=== PATIENT | female | born 1980 | race Caucasian/White ===

== ENCOUNTER 2018-11-30 08:16 | Day surgery (SDC) | payer OTHER ==
[2018-11-30] VITALS (18 sets, daily range): BP systolic 94–124; BP diastolic 51–72; PULSE 60–88; RESP 11–21; Ht 149.9 cm; Wt 77.1 kg
[~2018-11-30] VITALS: Ht 149.9 cm; Wt 77.1 kg
[2018-11-30] MEDS ORDERED: SOD CHLORIDE 0.9% 1,000 ML IV SCH (11:30)
[2018-11-30] MEDS ORDERED: CEFAZOLIN 2 GM/50 ML (PMX) 50 ML IVPB SCH (11:30)
[2018-11-30] MEDS ORDERED: BUPIVACAINE 0.25% (MPF) 30 ML INJ ONE (12:06)
--- NOTE | 2018-11-30 12:15 | PREAC ---
Date/Time of Note Date/Time of Note DATE: 11/30/18 TIME: 12:14 Anesthesia Eval and Record Evaluation Time Pre-Procedure Interview DATE: 11/30/18 TIME: 12:14 Age 38 Sex female NPO: 8 hrs Preoperative diagnosis axillary mass Planned procedure excision of axillary mass Past Medical History Past Medical History: None Surgery & Anesthesia Issues No known issue Meds Anticoagulation: No Beta Chris within 24 hr: No Reason Beta Chris not given: Pt. not on B-Chris No Active Prescriptions or Reported Meds Current Medications Sodium Chloride 1,000 ml @ 75 mls/hr [id number] IV ; Start 11/30/18 at 11:30; Stop 11/30/18 at 22:00 Meds reviewed: Yes Allergies Coded Allergies: ciprofloxacin (Verified Allergy, Unknown, 11/30/18) Allergies Reviewed: Yes Labs/Studies Labs Reviewed: Reviewed by anesthesiologist test: Negative Pre-procedure Exam Last vitals Vital Signs Date Temp Pulse Resp B/P (MAP) Pulse Ox O2 O2 Flow FiO2 Time Delivery Rate 11/30/18 97.8 72 16 124/67 100 09:54 (86) Airway: Adequate mouth opening, Adequate thyromental dist Mallampati: Mallampati III Teeth: Normal Lung: Normal Heart: Normal ASA Physical Status ASA physical status: 1 Emergency: None Pre-operative Attestations Prior to commencing anesthesia and surgery, the patient was re-evaluated, there was verification of: *The patient's identity *The results of appropriate recent lab work and preoperative vital signs *The above evaluation not changing prior to induction *Anesthetic plan, risk benefits, alternative and complications discussed with patient/family; questions answered; patient/family understands, accepts and wishes to proceed. CHANA DASILVA DO Nov 30, 2018 12:15
[2018-11-30] MEDS ORDERED: ROPIVACAINE 0.5 % 30 ML VIAL ONE (12:29)
[2018-11-30] MEDS ORDERED: FENTAnyl 50 MCG/ML VIAL ONE ×2 (12:29→13:09)
[2018-11-30] MEDS ORDERED: MIDAZOLAM 1 MG/ML 2 ML INJ ONE (12:29)
[2018-11-30] MEDS ORDERED: PROPOFOL 20 ML ONE (12:29)
[2018-11-30] MEDS ORDERED: DEXAMETHASONE 4 MG/ML 5 ML INJ ONE (12:30)
[2018-11-30] MEDS ORDERED: HYDROmorphONE 1 MG/5 ML IV SYRINGE IV PRN ×3 (12:30)
[2018-11-30] MEDS ORDERED: SEVOFLURANE 15 MIN ONE (12:30)
[2018-11-30] MEDS ORDERED: LIDOCAINE 1% (MDV) 20 ML INJ ONE (12:30)
[2018-11-30] MEDS ORDERED: CEFAZOLIN 1 GM INJ ONE (12:52)
[2018-11-30] MEDS ORDERED: ONDANSETRON 4 MG INJ ONE (12:55)
[2018-11-30] MEDS ORDERED: KETOROLAC 30 MG INJ ONE (13:11)
--- NOTE | 2018-11-30 13:26 | OPR ---
Date/Time of Note Date/Time of Note DATE: 11/30/18 TIME: 13:22 Operative Report Procedure Date: Nov 30, 2018 Preoperative Diagnosis right axillary mass and hydradenitis supprativa Postoperative Diagnosis same Operation/Procedure Performed 1. right axillary mass excision 9 x 3 cm 2. localized adjacent tissue transfer with the use of skin flaps 27 sq cm defect of right axillary 3. therapeutic injection of subcutaneous local anesthesia Surgeon see signature line Renal Medicine Specialist none Anesthesia Type: general Estimated Blood Loss: 10 - 50 ml's Transfusion none Specimen right axillary mass Grafts/Implants none Complications none Pt Condition Post Procedure: stable Indications This is a 38-year-old female with recurrent right axillary hidradenitis supra TO. She has been drained with incisions and drainages at multiple ERs without complete resolution. The office and placed on preoperative oral antibiotics to control the current infection. She is brought to the OR for wide local excision of the right axillary hidradenitis supra T Nurys. Risks alternatives benefits and percent were discussed with the patient. Potential complications including but not limited to bleeding infection recurrence of the hidradenitis supprativa wound dehiscence and chronic pain were discussed the patient. Patient expressed understanding consents to the operation. Procedure Description Patient is taken to the OR and prepped and draped in usual sterile fashion. Surgical time was performed. IV antibiotics were given. Examination of the right axillary area showed serous drainage from 2 areas of prior infections. Wide local excision was performed by making an elliptical incision around the 2 areas with a generous amount of normal tissue as above for. Dissection with cautery was carried onto the area of the mass and circumferentially excised. Good hemostasis established. The surgical site is reevaluated for any active infection. There is no evidence of any active infection. Irrigation was used in this area. Good hemostasis established. Good due to the tissue defect localized adjacent to his transfer with use of skin flaps was performed. Multilayer closure with interrupted 2-0 Vicryl and interrupted 2-0 nylon. Therapeutic contains local anesthesia was injected throughout the incision site. Dry dressings were applied. Patient will be sent home with oral antibiotics for 2 weeks and is to follow-up with me in 2 clinic annotation Ange OWUSU Nov 30, 2018 13:26
[2018-11-30] MEDS ORDERED: HYDROCODONE/APAP (5/325) TAB PO ONE (13:30)
[2018-11-30] MEDS ORDERED: ONDANSETRON 4 MG INJ IV STA (15:12)
[2018-11-30] MEDS ORDERED: FAMOTIDINE 20 MG INJ IV ONE (16:30)
[2018-11-30] MEDS ORDERED: DIPHENHYDRAMINE 50 MG INJ IV ONE (16:30)
== END 2018-11-30 16:45 | disposition home or self-care (01) ==
LOC: SDS 08:16
PROVIDERS: ATTEND Surgery
DX: L73.2 Hidradenitis suppurativa (principal); L72.0 Epidermal cyst
CPT/HCPCS: 14041; 82962; 84703; 88307; J0690; J1100; J1170; J1200; J2250; J2405; J2795; J3010; Z7512; Z7610; J1885

== ENCOUNTER 2019-01-28 05:37 | Day surgery (SDC) | payer OTHER ==
[~2019-01-28] VITALS: Ht 147.3 cm; Wt 74.7 kg
[2019-01-28] VITALS (13 sets, daily range): BP systolic 102–122; BP diastolic 56–65; PULSE 74–80; RESP 13–20; Ht 147.3 cm; Wt 74.7 kg
--- NOTE | 2019-01-28 07:04 | PREAC ---
Date/Time of Note Date/Time of Note DATE: 01/28/19 TIME: 07:02 Anesthesia Eval and Record Evaluation Time Pre-Procedure Interview DATE: 01/28/19 TIME: 07:02 Age 38 Sex female NPO: 8 hrs Preoperative diagnosis Right axillary maa Planned procedure Excision of mass Past Medical History Past Medical History: Includes GI: Obesity Surgery & Anesthesia Issues No known issue Meds Anticoagulation: No Beta Chris within 24 hr: No Reason Beta Chris not given: Pt. not on B-Chris No Active Prescriptions or Reported Meds Meds reviewed: Yes Allergies Coded Allergies: ciprofloxacin (Verified Allergy, Unknown, 01/28/19) Allergies Reviewed: Yes Labs/Studies Labs Reviewed: Reviewed by anesthesiologist test: Negative Pre-procedure Exam Airway: Adequate mouth opening Mallampati: Mallampati II Teeth: Normal Lung: Normal Heart: Normal ASA Physical Status ASA physical status: 2 Emergency: None Planned Anesthetic General/MAC: LMA Planned Pain Management Parenteral pain med Pre-operative Attestations Prior to commencing anesthesia and surgery, the patient was re-evaluated, there was verification of: *The patient's identity *The results of appropriate recent lab work and preoperative vital signs *The above evaluation not changing prior to induction *Anesthetic plan, risk benefits, alternative and complications discussed with patient/family; questions answered; patient/family understands, accepts and wishes to proceed. ELTON FAITH MD January 28, 2019 07:04
[2019-01-28] MEDS ORDERED: BUPIVACAINE 0.25% (MPF) 30 ML INJ ONE (07:13)
[2019-01-28] MEDS ORDERED: MEPERIDINE 100 MG INJ ONE (07:38)
[2019-01-28] MEDS ORDERED: PROPOFOL 20 ML ONE (07:38)
[2019-01-28] MEDS ORDERED: CEFAZOLIN 1 GM INJ ONE (07:38)
[2019-01-28] MEDS ORDERED: LIDOCAINE 2% (SDV) 5 ML INJ ONE (07:38)
[2019-01-28] MEDS ORDERED: METOCLOPRAMIDE 10 MG INJ ONE (07:39)
[2019-01-28] MEDS ORDERED: ONDANSETRON 4 MG INJ ONE (07:39)
[2019-01-28] MEDS ORDERED: ONDANSETRON 4 MG INJ IV PRN (08:00)
[2019-01-28] MEDS ORDERED: FENTAnyl 50 MCG/ML VIAL IV PRN ×3 (08:00)
[2019-01-28] MEDS ORDERED: OXYCODONE/ACETAMINOPHEN (5/325) TAB PO PRN ×2 (08:00)
[2019-01-28] MEDS ORDERED: MEPERIDINE 25 MG INJ IV PRN (08:00)
[2019-01-28] MEDS ORDERED: DIPHENHYDRAMINE 50 MG INJ IV PRN (08:00)
[2019-01-28] MEDS ORDERED: METOCLOPRAMIDE 10 MG INJ IV PRN (08:00)
[2019-01-28] MEDS ORDERED: HYDROmorphONE 1 MG/5 ML IV SYRINGE IV PRN ×3 (08:00)
[2019-01-28] MEDS ORDERED: MIDAZOLAM 1 MG/ML 2 ML INJ IV PRN (08:00)
--- NOTE | 2019-01-28 08:25 | OPR ---
Date/Time of Note Date/Time of Note DATE: 01/28/19 TIME: 08:21 Operative Report Procedure Date: January 28, 2019 Preoperative Diagnosis left axillary mass Postoperative Diagnosis same Operation/Procedure Performed 1. excision of left axillary mass 5 cm mass 5 cm incision 2. localized adjacent tissue transfer with the use of skin flaps 10 sq cm defect of left axilla 3. therapeutic injection of subcutaneous local anesthesia Surgeon see signature line Cordwood Cutter Helper none Anesthesia Type: general Estimated Blood Loss: 0 - 10 ml's Transfusion none Specimen left axillary mass Grafts/Implants none Complications none Pt Condition Post Procedure: stable Indications This is a 38-year-old female with left axillary mass. She requires surgical excision. Risks alternatives benefits and percent were discussed the patient. Potential complications including but not limited to bleeding infection pain recurrence of the mass and recurrent infections and wound dehiscence were discussed the patient. Patient expressed understanding and consents to the operation. Procedure Description Patient is taken to the OR and prepped and draped in usual sterile fashion. Surgical time was performed. IV antibiotics given. Elliptical incision was made over the left axillary mass with a 15 blade. Dissection with cautery was carried down to the mass. The mass was circumferentially excised. Good hemostasis status. Due to tissue defect localization to stress her with these of skin flaps was performed. Multilayer closure with interrupted 3-0 Vicryl and skin raleigh. Therapeutic subcutaneous local anesthesia was injected at the incision site. Dry dressings were applied. Ange OWUSU January 28, 2019 08:25
[2019-01-28] MEDS ORDERED: HYDROCODONE/APAP (5/325) TAB PO ONE (08:30)
--- NOTE | 2019-01-28 09:13 | PAC ---
Date/Time of Note Date/Time of Note DATE: 01/28/19 TIME: 09:13 Post-Anesthesia Notes Post-Anesthesia Note Last documented vital signs Vital Signs Date Temp Pulse Resp B/P (MAP) Pulse Ox O2 O2 Flow FiO2 Time Delivery Rate 01/28/19 74 19 115/65 97 Room Air 08:55 (82) 01/28/19 98.0 08:22 Activity: WNL Respiratory function: WNL Cardiovascular function: WNL Mental status: Baseline Pain reasonably controlled: Yes Hydration appropriate: Yes Nausea/Vomiting absent: Yes Comments BT: 98.2 ELTON FAITH MD January 28, 2019 09:13
== END 2019-01-28 10:31 | disposition home or self-care (01) ==
LOC: SDS 05:37
PROVIDERS: ATTEND Surgery
DX: L92.8 Other granulomatous disorders of the skin and subcutaneous tissue (principal)
CPT/HCPCS: 14040; 80053; 85025; 85610; 85730; 88307; J0690; J2175; J2405; J2765; J3010; Z7512; Z7610

== ENCOUNTER 2019-03-25 08:12 | Day surgery (SDC) | payer OTHER ==
[2019-03-25] VITALS (23 sets, daily range): BP systolic 100–133; BP diastolic 58–76; PULSE 82–105; RESP 6–18; Ht 152.4 cm; Wt 76.6 kg
[~2019-03-25] VITALS: Ht 152.4 cm; Wt 76.6 kg
[~2019-03-25 08:12] MED LIST: CEFAZOLIN 2 GM/50 ML (PMX) 50 ML IVPB ONE; SOD CHLORIDE 0.9% 1,000 ML IV ONE
[2019-03-25] MEDS ORDERED: SUCCINYLCHOLINE CHLORIDE 100 MG/5 ML SYG IV ONE (10:00)
[2019-03-25] MEDS ORDERED: LIDOCAINE 2% (SDV) 5 ML INJ ONE (10:00)
[2019-03-25] MEDS ORDERED: ROCURONIUM 50 MG INJ ONE (10:00)
[2019-03-25] MEDS ORDERED: MIDAZOLAM 1 MG/ML 2 ML INJ ONE (10:00)
[2019-03-25] MEDS ORDERED: PROPOFOL 20 ML ONE (10:00)
[2019-03-25] MEDS ORDERED: CEFAZOLIN 1 GM INJ ONE (10:00)
[2019-03-25] MEDS ORDERED: ROPIVACAINE 0.5 % 30 ML VIAL ONE (10:04)
--- NOTE | 2019-03-25 10:14 | PREAC ---
Date/Time of Note Date/Time of Note DATE: 03/25/19 TIME: 10:14 Anesthesia Eval and Record Evaluation Time Pre-Procedure Interview DATE: 03/25/19 TIME: 10:14 Age 38 Sex female NPO: 8 hrs Preoperative diagnosis gallstones Planned procedure lap choly Past Medical History Past Medical History: Includes GI: Obesity Surgery & Anesthesia Issues No known issue Meds Anticoagulation: No Beta Chris within 24 hr: No Reason Beta Chris not given: Pt. not on B-Chris No Active Prescriptions or Reported Meds Current Medications Sodium Chloride 1,000 ml @ 75 mls/hr [id number] ONCE IV Last administered on 03/25/19at 09:09; Admin Dose 75 MLS/HR; Start 03/25/19 at 07:00; Stop 03/25/19 at 20:19 Meds reviewed: Yes Allergies Coded Allergies: ciprofloxacin (Verified Allergy, Severe, 03/25/19) Allergies Reviewed: Yes Labs/Studies Labs Reviewed: Reviewed by anesthesiologist Result Diagram: 03/25/19 0900 03/25/19 0900 Laboratory Tests 03/25/19 09:00 test: Negative Pre-procedure Exam Last vitals Vital Signs Date Temp Pulse Resp B/P (MAP) Pulse Ox O2 O2 Flow FiO2 Time Delivery Rate 03/25/19 98.9 89 16 113/60 97 Room Air 09:11 (77) Airway: Adequate mouth opening, Adequate thyromental dist Mallampati: Mallampati IV Teeth: Normal Lung: Normal Heart: Normal ASA Physical Status ASA physical status: 2 Emergency: None Pre-operative Attestations Prior to commencing anesthesia and surgery, the patient was re-evaluated, there was verification of: *The patient's identity *The results of appropriate recent lab work and preoperative vital signs *The above evaluation not changing prior to induction *Anesthetic plan, risk benefits, alternative and complications discussed with patient/family; questions answered; patient/family understands, accepts and wishes to proceed. CHANA DASILVA DO Mar 25, 2019 10:14
[2019-03-25] MEDS ORDERED: HYDROmorphONE 1 MG/5 ML IV SYRINGE IV PRN ×3 (11:00)
[2019-03-25] MEDS ORDERED: ONDANSETRON 4 MG INJ IV PRN (11:00)
[2019-03-25] MEDS ORDERED: OXYCODONE/ACETAMINOPHEN (5/325) TAB PO PRN ×2 (11:00)
[2019-03-25] MEDS ORDERED: MEPERIDINE 25 MG INJ IV PRN (11:00)
[2019-03-25] MEDS ORDERED: DEXAMETHASONE 4 MG/ML 5 ML INJ ONE (11:35)
[2019-03-25] MEDS ORDERED: ONDANSETRON 4 MG INJ ONE (11:35)
[2019-03-25] MEDS ORDERED: FAMOTIDINE 20 MG INJ ONE (11:35)
--- NOTE | 2019-03-25 12:06 | OPR ---
Date/Time of Note Date/Time of Note DATE: 03/25/19 TIME: 12:04 Operative Report Procedure Date: Mar 25, 2019 Preoperative Diagnosis Symptomatic gallstones Postoperative Diagnosis Same Operation/Procedure Performed Laparoscopic cholecystectomy Surgeon see signature line Automatic Corn Grinder Operator None Anesthesia Type: general Estimated Blood Loss: 0 - 10 ml's Transfusion none Specimen Gallbladder Grafts/Implants none Complications none Pt Condition Post Procedure: stable Indications This is a 40-year-old female with symptomatic gallstones. She required surgical excision of her gallbladder. Risks alternatives benefits and personal were discussed the patient. Potential complications including but not limited to bleeding infection common bile duct injury injury to surrounding structures were discussed the patient. Patient expressed understanding and consents to the operation. Procedure Description Patient is taken to the OR and prepped and draped in usual sterile fashion. Surgical timeout was performed. IV antibiotics given. Infraumbilical transverse incision was made to 15 blade. Dissection with cautery skin onto the fascia. The fascia was grasped with Auburn's and divided with curved Espinoza scissors. 0 Vicryl use this was placed into the fascia. Jeter trocar was introduced. Pneumoperitoneum is established. Midepigastric 12 mm optical trochars placed under direct visualization. Right upper quadrant upper flank 5 mm optical trochars were placed under direct visualization. Upon initial inspection there is adhesions to the gallbladder which were taken down bluntly. The gallbladder is grasped with the fundus retracted and lateral and cephalad direction. [place] graspers were used to dissect the cystic duct and cystic artery. The critical view was established. The cystic duct is divided to close proximal clip distal and the division was performed laparoscopic scissors. Cystic artery was divided with the clips proximal clip distal and the division is performed laparoscopic scissors. The gallbladder was taken of the gallbladder bed. Good hemostasis status. The gallbladder is retrieved Endo Catch bag. All ports were removed under direct visualization. 0 Vicryl was tied down. Skin is closed and skin raleigh. A tap block was provided the anesthesiologist. Dry dressings were applied. Ange OWUSU Mar 25, 2019 12:06
--- NOTE | 2019-03-25 12:11 | PAC ---
Date/Time of Note Date/Time of Note DATE: 03/25/19 TIME: 12:10 Post-Anesthesia Notes Post-Anesthesia Note Last documented vital signs Vital Signs Date Temp Pulse Resp B/P (MAP) Pulse Ox O2 O2 Flow FiO2 Time Delivery Rate 03/25/19 98.6 105 16 105/69 97 Room Air 1209 Activity: WNL Respiratory function: WNL Cardiovascular function: WNL Mental status: Baseline Pain reasonably controlled: Yes Hydration appropriate: Yes Nausea/Vomiting absent: Yes CHANA DASILVA DO Mar 25, 2019 12:11
[2019-03-25] MEDS ORDERED: SUGAMMADEX SODIUM 200 MG/2 ML VIAL IV ONE (12:13)
[2019-03-25] MEDS ORDERED: HYDROCODONE/APAP (5/325) TAB PO ONE (12:30)
== END 2019-03-25 14:55 | disposition home or self-care (01) ==
LOC: SDS 08:12
PROVIDERS: ATTEND Surgery
DX: K80.10 Calculus of gallbladder with chronic cholecystitis without obstruction (principal)
CPT/HCPCS: 47562; 80053; 84703; 85025; 85610; 85730; 88304; J0690; J1100; J1170; J2250; J2405; J2795; J3010; Z7512; Z7610

== ENCOUNTER 2019-03-31 16:21 | Inpatient (IN) | payer OTHER ==
[~2019-03-31] VITALS: Ht 149.9 cm; Wt 79.0 kg
[2019-03-31] MEDS ORDERED: VANCOMYCIN 1 GM (PMX) 250 ML IVPB STA (16:41)
[2019-03-31] MEDS ORDERED: PIPER-TAZO 3.375 GM IV (PMX) 100 ML IVPB STA (16:41)
[2019-03-31] MEDS ORDERED: morphine 4 MG/ML VIAL IV STA ×2 (16:41→19:40)
[2019-03-31] MEDS ORDERED: ONDANSETRON 4 MG INJ IV STA (16:41)
[2019-03-31] MEDS ORDERED: SODIUM CHLORIDE 0.9% 1L BAG IV* STA (16:41)
--- NOTE | 2019-03-31 17:04 | ERD ---
ER Documentation Chief Complaint Chief Complaint c/o upper abd pain rad to back. recent surgery on "boil" HPI This is a 38-year-old female with a previous history of hypertension and cholecystectomy done approximately [address] Audra sterling to the emergency room for evaluation of abdominal pain, fever and nausea. The patient states that she has had her symptoms for 24 hours. She localizes the abdominal pain to the right upper portion of the abdomen and states she has some radiation to the back. The patient states her pain is sharp pain worse with any movement and there is no relieving factors. The patient came to the ER today for evaluation of her symptoms. She has not called her general surgeon. ROS All systems reviewed and are negative except as per history of present illness. Medications Home Meds No Active Prescriptions or Reported Meds Allergies Allergies: Coded Allergies: ciprofloxacin (Verified Allergy, Severe, 03/31/19) PMhx/Soc History of Surgery: Yes (btl, genital herpes,GB removal) Anesthesia Reaction: No Hx Neurological Disorder: No Hx Respiratory Disorders: No Hx Cardiac Disorders: No Hx Psychiatric Problems: No Hx Miscellaneous Medical Probl: Yes (tb + treated, suppurative hidradenitis (abscess)) Hx Alcohol Use: No Hx Substance Use: No Hx Tobacco Use: No Smoking Status: Never smoker Physical Exam Vitals Vital Signs Date Temp Pulse Resp B/P (MAP) Pulse Ox O2 O2 Flow FiO2 Time Delivery Rate 03/31/19 99.1 103 12 120/72 99 Room Air 18:42 (88) 03/31/19 99.1 104 20 120/77 99 Nasal 2.0 18:07 (91) Cannula 03/31/19 Nasal 2 17:00 Cannula 03/31/19 99.9 114 18 130/80 99 Room Air 17:00 (97) 03/31/19 101.5 121 20 125/70 98 16:36 (88) Physical Exam INITIAL VITAL SIGNS: Reviewed by me GENERAL: The patient is well developed a mild distress HEENT: Pupils equal, round, and reactive to light. EOMI. There is no scleral icterus. NECK: C-spine is soft and supple, there is no meningismus. There is no cervical lymphadenopathy. LUNGS: Clear to auscultation bilaterally. There are no rales, wheezes or rhonchi. HEART: tachycardic, no murmurs, clicks, rubs or gallops. ABDOMEN: Tender to palpation in the right upper quadrant, and epigastric region, multiple healing incisions with raleigh in the umbilical, periumbilical and right upper quadrant. EXTREMITIES: There is no peripheral cyanosis or edema. No focal swelling or erythema. NEUROLOGICAL: The patient moves all four extremities with 5/5 strength. Cranial nerves II - XII are intact. Normal gait. Alert and oriented SKIN: There is no apparent rash or petechiae. HEME/LYMPHATIC: There is no evidence of excessive bruising or lymphedema. PSYCHIATRIC: The patient does not appear anxious or depressed. Result Diagram: 03/31/19 1649 03/31/19 1649 Results 24 hrs Laboratory Tests Test 03/31/19 16:49 03/31/19 16:57 03/31/19 17:27 White Blood Count 12.6 10^3/ul Red Blood Count 4.58 10^6/ul Hemoglobin 12.0 g/dl Hematocrit 37.9 % Mean Corpuscular Volume 82.8 fl Mean Corpuscular Hemoglobin 26.2 pg Mean Corpuscular 31.7 g/dl Hemoglobin Concent Red Cell Distribution Width 14.1 % Platelet Count 310 10^3/UL Mean Platelet Volume 8.8 fl Immature Granulocytes % 0.800 % Neutrophils % 81.3 % Lymphocytes % 10.7 % Monocytes % 5.2 % Eosinophils % 1.6 % Basophils % 0.4 % Nucleated Red Blood Cells % 0.0 /100WBC Immature Granulocytes # 0.100 10^3/ul Neutrophils # 10.2 10^3/ul Lymphocytes # 1.3 10^3/ul Monocytes # 0.7 10^3/ul Eosinophils # 0.2 10^3/ul Basophils # 0.1 10^3/ul Nucleated Red Blood Cells # 0.0 10^3/ul Prothrombin Time 12.4 Sec Prothrombin Time Ratio 1.0 INR International 0.91 Normalized Ratio Activated Partial Thromboplast 23.3 Sec Time Sodium Level 140 mmol/L Potassium Level 3.7 mmol/L Chloride Level 104 mmol/L Carbon Dioxide Level 26 mmol/L Anion Gap 10 Blood Urea Nitrogen 15 mg/dl Creatinine 0.81 mg/dl Est Glomerular Filtrat > 60 mL/min Rate mL/min Glucose Level 116 mg/dl Calcium Level 8.9 mg/dl Total Bilirubin 0.6 mg/dl Direct Bilirubin 0.00 mg/dl Indirect Bilirubin 0.6 mg/dl Aspartate Amino 24 IU/L Transf (AST/SGOT) Alanine 39 IU/L Aminotransferase (ALT/SGPT) Alkaline Phosphatase 104 IU/L Troponin I < 0.012 ng/ml Total Protein 8.0 g/dl Albumin 4.4 g/dl Globulin 3.60 g/dl Albumin/Globulin Ratio 1.22 Serum HCG, Qualitative NEGATIVE POC Venous Lactate 1.8 mmol/L Urine Color YELLOW Urine Clarity SLIGHTLY CLOUDY Urine pH 6.0 Urine Specific [place] 1.023 Urine Ketones NEGATIVE mg/dL Urine Nitrite NEGATIVE mg/dL Urine Bilirubin NEGATIVE mg/dL Urine Urobilinogen NEGATIVE mg/dL Urine Leukocyte Esterase NEGATIVE Danny/ul Urine Microscopic RBC 10 /HPF Urine Microscopic WBC 3 /HPF Urine Squamous Epithelial Cells FEW /HPF Urine Mucus MANY /HPF Urine Hemoglobin 2+ mg/dL Urine Glucose NEGATIVE mg/dL Urine Total Protein NEGATIVE mg/dl Current Medications Medications Dose Sig/Arianne Start Time Status Last (Trade) Ordered Route PRN Stop Time Admin Dose Reason Admin Sodium 2,280 ml BOLUS OVER 2 03/31/19 DC 03/31/19 Chloride HOURS STAT 16:41 16:55 (NS) IV* 03/31/19 16:44 Vancomycin 250 ml @ ONCE STAT 03/31/19 DC 03/31/19 HCl 125 mls/hr IVPB 16:41 18:34 03/31/19 18:40 Piperacillin 100 ml @ ONCE STAT 03/31/19 DC 03/31/19 Sod/ 200 mls/hr IVPB 16:41 17:32 Tazobactam 03/31/19 17:10 Sod Morphine 4 mg ONCE STAT 03/31/19 DC 03/31/19 Sulfate IV 16:41 16:55 (morphine) 03/31/19 16:44 Ondansetron 4 mg ONCE STAT 03/31/19 DC 03/31/19 HCl (Zofran IV 16:41 16:55 Inj) 03/31/19 16:44 Sodium 100 ml @ ud STK-MED 03/31/19 DC Chloride ONCE .ROUTE 17:39 03/31/19 17:40 Iohexol 150 ml STK-MED 03/31/19 DC (Omnipaque ONCE .ROUTE 17:39 300mg/ ml) 03/31/19 17:40 Procedures/MDM CT abdomen pelvis with IV contrast: 1. Gallbladder fossa postoperative fluid collection measuring 40 X 37 X 31 mm. 2. Small amount of free pelvic fluid. 3. Hepatic steatosis. 4. Bibasilar linear atelectasis. EKG: Rate/Rhythm: Sinus tachycardia QRS, ST, T-waves: [No changes consistent w/ acute ischemia] Impression: [Sinus tachycardia, no evidence of ischemia or arrhythmia] This is a 38-year-old female presents to the ER for evaluation of abdominal pain. The patient had a cholecystectomy done recently by Dr. Ba on March 25, 2019. She states that she is having pain in the right upper quadrant and when I evaluated her she was febrile and tachycardic. A code sepsis was called. Patient was given IV morphine and broad-spectrum antibiotics with appropriate fluid bolus. She does have a leukocytosis however she is hemodynamically stable with no signs of retention requiring vasopressors. The patient's tachycardia did improve after some IV fluids. CT of the abdomen pelvis does show what appears to be a postop abscess. I did contact Dr. Ba who is aware and would like the patient admitted. The patient will be admitted to Dr. Bard waldron and will be placed on the Medr floor at this time. Critical Care: Excluding all billable procedures Time: 48 minutes Treatments/Evaluations: Close monitoring and treatment of unstable vital signs, cardiorespiratory, and neurologic status, while maintaining tight balance of fluid, respiratory, and cardiac interventions. Departure Diagnosis: Primary Impression: Sepsis Additional Impressions: Postoperative abscess Abdominal pain Condition: CLARY Craig DO Mar 31, 2019 17:03
[2019-03-31] MEDS ORDERED: IOHEXOL 300MG/ML 150 ML BTL ONE (17:39)
[2019-03-31] MEDS ORDERED: SOD CHLORIDE 0.9% 100 ML ONE (17:39)
[2019-03-31] MEDS ORDERED: SOD CHLORIDE 0.9% 1,000 ML IV SCH (19:01)
[2019-03-31] MEDS ORDERED: ACETAMINOPHEN 325 MG TAB PO PRN (19:30)
[2019-03-31] MEDS ORDERED: ONDANSETRON 4 MG INJ IV PRN (19:30)
[2019-03-31] MEDS ORDERED: DIPHENHYDRAMINE 50 MG INJ ONE (19:43)
[2019-03-31] MEDS ORDERED: DIPHENHYDRAMINE 50 MG INJ IV ONE (20:00)
[2019-03-31 20:35] VITALS: Ht 149.9 cm; Wt 79.0 kg
[2019-03-31 20:40] VITALS: BP 113/79; PULSE 100; RESP 18
[2019-04-01] MEDS ORDERED: morphine 2 MG INJ IV PRN (00:30)
[2019-04-01] MEDS ORDERED: HYDROCODONE/APAP (5/325) TAB PO PRN (00:30)
[2019-04-01] MEDS: DEXTROSE 5%-0.45% NACL 1,000 ML IV SCH ×3 (01:34→17:29)
[2019-04-01] MEDS: ACETAMINOPHEN 325 MG TAB PO PRN ×3 (01:40→19:18)
[2019-04-01 02:00] VITALS: BP 114/65; PULSE 67; RESP 18
[2019-04-01] MEDS: PIPER-TAZO 3.375 GM IV (PMX) 100 ML IVPB SCH ×3 (05:51→17:29)
[2019-04-01 08:00] VITALS: BP 90/55; PULSE 59; RESP 18
[2019-04-01] MEDS: ONDANSETRON 4 MG INJ IV PRN ×2 (10:20→19:17)
--- NOTE | 2019-04-01 12:00 | CONS ---
DATE OF ADMISSION: 03/31/2019 DATE OF CONSULTATION: 04/01/2019 GENERAL SURGERY CONSULTATION NOTE INDICATION: This is a 38-year-old female who underwent a laparoscopic cholecystectomy. She started having some focal right upper quadrant pain approximately 2 days afterwards. Denies any fevers. She was tolerating diet; did not have any nausea or vomiting. She presented to the ER and underwent jamey luation with a CT scan showing a fluid collection in the right upper quadrant. She also had leukocyt osis that was mild at 12.6. She was admitted through the ER and was placed on IV antibiotics. Her w yao count went back down to 10. She does not have any additional fevers. On admission, she had ini tial fever of 101.5. PHYSICAL EXAMINATION: VITAL SIGNS: Temperature 99.1, pulse is 104, respiratory rate is 20, blood pressure 120/77, focal ab dominal exam is nonspecific, nontender. No peritoneal signs and soft. IMAGING: CT scan shows a postoperative fluid collection approximately 4 cm. No evidence of any absc ess. ASSESSMENT AND PLAN: This is a 38-year-old female with most likely fluid collection in the right upp er quadrant. She recently had a laparoscopic cholecystectomy. We will try to treat her with IV anti biotics and her symptoms improved. She may be discharged on diet. Otherwise, if this does not impro ve, she may need to get a percutaneous drainage. We will continue to follow. Dictated By: LAVELLE OWUSU MD SB/LELE Conf#: [id number] DID#: [id number] CC: MARSHAL TAYLOR MD;*EndCC*
--- NOTE | 2019-04-01 12:24 | HP ---
Date/Time of Note Date/Time of Note DATE: 04/01/19 TIME: 12:09 Assessment/Plan VTE Prophylaxis Risk score (from [facility])>0 risk: 2 SCD applied (from [facility]): Yes Pharmacological prophylaxis: NA/contraindicated Pharm contraindication: surgical contra Lines/Catheters IV Catheter Type (from [facility]): Peripheral IV Assessment/Plan Assessment/Plan -Sepsis secondary to postoperative abscess, continue IV fluids and broad- spectrum antibiotics. Dr. Son is asked to see patient in infection disease consultation. -Postoperative abscess -History of cholecystectomy on March 25, 2019. Dr. Zhu is following in general surgery consultation. Further recommendations based on clinical course. Plan of care discussed with Dr. Johnson. Result Diagram: 04/01/19 0442 04/01/19 0442 Results 24hrs Laboratory Tests Test 03/31/19 16:49 03/31/19 16:57 03/31/19 17:27 03/31/19 18:40 White Blood Count 12.6 #H Red Blood Count 4.58 Hemoglobin 12.0 Hematocrit 37.9 Mean Corpuscular 82.8 Volume Mean Corpuscular 26.2 L Hemoglobin Mean Corpuscular 31.7 L Hemoglobin Concen t Red Cell 14.1 Distribution Width Platelet Count 310 Mean Platelet 8.8 Volume Immature 0.800 H Granulocytes % Neutrophils % 81.3 H Lymphocytes % 10.7 L Monocytes % 5.2 Eosinophils % 1.6 Basophils % 0.4 Nucleated Red 0.0 Blood Cells % Immature 0.100 H Granulocytes # Neutrophils # 10.2 H Lymphocytes # 1.3 Monocytes # 0.7 Eosinophils # 0.2 Basophils # 0.1 Nucleated Red 0.0 Blood Cells # Prothrombin Time 12.4 Prothrombin Time 1.0 Ratio INR International 0.91 Normalized Ratio Activated 23.3 Partial Thrombopl ast Time Sodium Level 140 Potassium Level 3.7 Chloride Level 104 Carbon Dioxide 26 Level Anion Gap 10 Blood Urea 15 Nitrogen Creatinine 0.81 Est Glomerular > 60 Filtrat Rate mL/min Glucose Level 116 Calcium Level 8.9 Total Bilirubin 0.6 Direct Bilirubin 0.00 Indirect 0.6 Bilirubin Aspartate Amino 24 Transf (AST/SGOT) Alanine 39 Aminotransferase (ALT/SGPT) Alkaline 104 Phosphatase Troponin I < 0.012 Total Protein 8.0 Albumin 4.4 Globulin 3.60 H Albumin/Globulin 1.22 Ratio Serum HCG, NEGATIVE Qualitative POC Venous 1.8 Lactate Urine Color YELLOW Urine Clarity SLIGHTLY CLOUDY A Urine pH 6.0 Urine Specific 1.023 [place] Urine Ketones NEGATIVE Urine Nitrite NEGATIVE Urine Bilirubin NEGATIVE Urine NEGATIVE Urobilinogen Urine Leukocyte NEGATIVE Esterase Urine Microscopic 10 H RBC Urine Microscopic 3 WBC Urine Squamous FEW Epithelial Cells Urine Mucus MANY A Urine Hemoglobin 2+ H Urine Glucose NEGATIVE Urine Total NEGATIVE Protein Lactic Acid Level 0.9 Test 03/31/19 21:14 04/01/19 04:42 Lactic Acid Level 2.0 White Blood Count 10.0 # Red Blood Count 3.92 L Hemoglobin 10.3 L Hematocrit 32.4 L Mean Corpuscular 82.7 Volume Mean Corpuscular 26.3 L Hemoglobin Mean Corpuscular 31.8 L Hemoglobin Concen t Red Cell 14.0 Distribution Width Platelet Count 290 Mean Platelet 9.3 Volume Immature 0.700 H Granulocytes % Neutrophils % 60.5 Lymphocytes % 28.0 Monocytes % 7.0 Eosinophils % 3.4 Basophils % 0.4 Nucleated Red 0.0 Blood Cells % Immature 0.070 H Granulocytes # Neutrophils # 6.0 Lymphocytes # 2.8 Monocytes # 0.7 Eosinophils # 0.3 Basophils # 0.0 Nucleated Red 0.0 Blood Cells # Sodium Level 142 Potassium Level 3.9 Chloride Level 109 Carbon Dioxide 26 Level Anion Gap 7 Blood Urea 8 Nitrogen Creatinine 0.60 Est Glomerular > 60 Filtrat Rate mL/min Glucose Level 116 Calcium Level 7.8 L Total Bilirubin 0.6 Direct Bilirubin 0.00 Indirect 0.6 Bilirubin Aspartate Amino 25 Transf (AST/SGOT) Alanine 36 Aminotransferase (ALT/SGPT) Alkaline 76 Phosphatase Total Protein 6.1 # Albumin 3.2 #L Globulin 2.90 Albumin/Globulin 1.10 Ratio HPI/ROS Admit Date/Time Admit Date/Time Mar 31, 2019 at 19:02 Hx of Present Illness Patient is a 38-year-old female who denies any chronic condition except for hydradenitis suppurativa for which patient underwent bilateral abscess removal under arms in November and January of this year. Patient underwent laparoscopic cholecystectomy by Dr. Zhu on March 25 and was discharged home in stable condition. Patient was doing fine postoperatively and on Monday she started to feel a feeling abdominal pain with radiation to the back. Patient came to the emergency room last night with complaints of fever and worsening right upper quadrant abdominal pain. Patient underwent CT of the abdomen which revealed fluid collection in the gallbladder fossa 40 x 37 x 31 mm. Patient noted to have fever of 101 and elevated white blood sounds. Patient was started on broad-spectrum antibiotics and admitted for further evaluation and management. ROS 12 point review of systems negative except for what mentioned in HPI PMH/Family/Social Past Medical History Per HPI Medications Current Medications Piperacillin Sod/ Tazobactam Sod 100 ml @ 200 mls/hr Q6 IVPB Last administered on 04/01/19at 05:51; Admin Dose 200 MLS/HR; Start 04/01/19 at 06:00 Acetaminophen (Tylenol Tab) 650 mg Q4H PRN PO MILD PAIN(1-3)OR ELEVATED TEMP Last administered on 04/01/19at 01:40; Admin Dose 650 MG; Start 04/01/19 at 00:30 Ondansetron HCl (Zofran Inj) 4 mg Q6H PRN IV NAUSEA AND/OR VOMITING Last a dministered on 04/01/19at 10:20; Admin Dose 4 MG; Start 04/01/19 at 00:30 Acetaminophen/ Hydrocodone Bitart ([place] (5/325)) 1 tab Q4H PRN PO MODERATE PAIN LEVEL 4-6; Start 04/01/19 at 00:30 Morphine Sulfate (morphine) 2 mg Q4H PRN IV SEVERE PAIN LEVEL 7-10; Start 04/01/19 at 00:30 Dextrose/Sodium Chloride 1,000 ml @ 75 mls/hr [id number] IV Last administered on 04/01/19at 01:34; Admin Dose 75 MLS/HR; Start 04/01/19 at 00:30 Coded Allergies: ciprofloxacin (Verified Allergy, Severe, 03/31/19) vancomycin (Verified Allergy, Intermediate, hives, 03/31/19) reaction in ER 03/31/19 Past Surgical History Past Surgical Hx: other (Status post laparoscopic cholecystectomy in March 25, 2019, status post surgery for right axillary abscess due to hidradenitis supra T. Nurys, status post surgery for left axillary abscess, status post bilateral ovarian cyst removal, status post surgery in the left wrist due to carpal tunnel syndrome status post tubal ligation) Family History Significant Family History: no pertinent family hx Social History Alcohol Use: none Smoking Status: Former smoker Drug Use: none Exam/Review of Systems Vital Signs Vitals Vital Signs Date Temp Pulse Resp B/P (MAP) Pulse Ox O2 O2 Flow FiO2 Time Delivery Rate 04/01/19 97.7 59 18 90/55 (67) 95 Room Air 08:00 03/31/19 2.0 18:07 Intake and Output 03/31/19 03/31/19 04/01/19 1515:00 23:00 07:00 IntakeIntake Total 2380 ml 1900 ml BalanceBalance 2380 ml 1900 ml Exam Constitutional: alert, oriented Head: normocephalic ENMT: nl external ears & nose Neck: supple Respiratory: clear to auscultation Cardiovascular: nl pulses Gastrointestinal: soft, tender, other (Laparoscopic incision intact with [place]) Musculoskeletal: nl extremities to inspection Extremities: normal pulses Neurological: nl mental status Skin: other (Left axillary surgical wound) YUSEF UGALDE Apr 01, 2019 12:23
--- NOTE | 2019-04-01 12:55 | PSY ---
Date/Time of Note Date/Time of Note DATE: 04/01/19 TIME: 12:53 Psychiatric Subjective Eval Consent Pt consented to telemedicine: No Subjective Evaluation Patient location: inpatient Chief Complaint: c/o upper abd pain rad to back. recent surgery on "boil" History of present illness Patient is a 38-year-old female who who is currently on the MedSurg units. On a [id number] evaluation patient admits history of depression she admits episodes of anxiety but denies suicidal ideation and contracted for safety.. Patient currently sees a psychologist for psychotherapy and she does not want any any psych meds states had therapy sessions helpful and she would rather not continue with her Cymbalta. Past psychiatric history History of depression Medical history Problems Medical Problems: (1) Abdominal pain Status: Acute (2) Postoperative abscess Status: Acute (3) Sepsis Status: Acute Allergies: Coded Allergies: ciprofloxacin (Verified Allergy, Severe, 03/31/19) vancomycin (Verified Allergy, Intermediate, hives, 03/31/19) reaction in ER 03/31/19 Substance Abuse Substance use: other Substance abuse history: No Prior substance abuse treatmen: No Social History Marital status: other DPA/Conservatorship: No Psychiatric Objective Eval Mental Status Examination: Laboratory Results Laboratory Tests Test 03/31/19 16:49 03/31/19 16:57 03/31/19 17:27 03/31/19 18:40 White Blood 12.6 10^3/ul Count Red Blood Count 4.58 10^6/ul Hemoglobin 12.0 g/dl Hematocrit 37.9 % Mean Corpuscular 82.8 fl Volume Mean Corpuscular 26.2 pg Hemoglobin Mean Corpuscular 31.7 g/dl Hemoglobin Zena nt Red Cell 14.1 % Distribution Width Platelet Count 310 10^3/UL Mean Platelet 8.8 fl Volume Immature 0.800 % Granulocytes % Neutrophils % 81.3 % Lymphocytes % 10.7 % Monocytes % 5.2 % Eosinophils % 1.6 % Basophils % 0.4 % Nucleated Red 0.0 /100WBC Blood Cells % Immature 0.100 10^3/ul Granulocytes # Neutrophils # 10.2 10^3/ul Lymphocytes # 1.3 10^3/ul Monocytes # 0.7 10^3/ul Eosinophils # 0.2 10^3/ul Basophils # 0.1 10^3/ul Nucleated Red 0.0 10^3/ul Blood Cells # Prothrombin Time 12.4 Sec Prothrombin Time 1.0 Ratio INR 0.91 International Normalized Ratio Activated 23.3 Sec Partial Thrombop last Time Sodium Level 140 mmol/L Potassium Level 3.7 mmol/L Chloride Level 104 mmol/L Carbon Dioxide 26 mmol/L Level Anion Gap 10 Blood Urea 15 mg/dl Nitrogen Creatinine 0.81 mg/dl Est Glomerular > 60 mL/min Filtrat Rate mL/min Glucose Level 116 mg/dl Calcium Level 8.9 mg/dl Total Bilirubin 0.6 mg/dl Direct Bilirubin 0.00 mg/dl Indirect 0.6 mg/dl Bilirubin Aspartate Amino 24 IU/L Transf (AST/SGOT ) Alanine 39 IU/L Aminotransferase (ALT/SGPT) Alkaline 104 IU/L Phosphatase Troponin I < 0.012 ng/ml Total Protein 8.0 g/dl Albumin 4.4 g/dl Globulin 3.60 g/dl Albumin/Globulin 1.22 Ratio Serum HCG, NEGATIVE Qualitative POC Venous 1.8 mmol/L Lactate Urine Color YELLOW Urine Clarity SLIGHTLY CLOUDY Urine pH 6.0 Urine Specific 1.023 [place] Urine Ketones NEGATIVE mg/dL Urine Nitrite NEGATIVE mg/dL Urine Bilirubin NEGATIVE mg/dL Urine NEGATIVE mg/dL Urobilinogen Urine Leukocyte NEGATIVE Danny/ul Esterase Urine 10 /HPF Microscopic RBC Urine 3 /HPF Microscopic WBC Urine Squamous FEW /HPF Epithelial Cells Urine Mucus MANY /HPF Urine Hemoglobin 2+ mg/dL Urine Glucose NEGATIVE mg/dL Urine Total NEGATIVE mg/dl Protein Lactic Acid 0.9 mmol/L Level Test 03/31/19 21:14 04/01/19 04:42 Lactic Acid 2.0 mmol/L Level White Blood 10.0 10^3/ul Count Red Blood Count 3.92 10^6/ul Hemoglobin 10.3 g/dl Hematocrit 32.4 % Mean Corpuscular 82.7 fl Volume Mean Corpuscular 26.3 pg Hemoglobin Mean Corpuscular 31.8 g/dl Hemoglobin Zena nt Red Cell 14.0 % Distribution Width Platelet Count 290 10^3/UL Mean Platelet 9.3 fl Volume Immature 0.700 % Granulocytes % Neutrophils % 60.5 % Lymphocytes % 28.0 % Monocytes % 7.0 % Eosinophils % 3.4 % Basophils % 0.4 % Nucleated Red 0.0 /100WBC Blood Cells % Immature 0.070 10^3/ul Granulocytes # Neutrophils # 6.0 10^3/ul Lymphocytes # 2.8 10^3/ul Monocytes # 0.7 10^3/ul Eosinophils # 0.3 10^3/ul Basophils # 0.0 10^3/ul Nucleated Red 0.0 10^3/ul Blood Cells # Sodium Level 142 mmol/L Potassium Level 3.9 mmol/L Chloride Level 109 mmol/L Carbon Dioxide 26 mmol/L Level Anion Gap 7 Blood Urea 8 mg/dl Nitrogen Creatinine 0.60 mg/dl Est Glomerular > 60 mL/min Filtrat Rate mL/min Glucose Level 116 mg/dl Calcium Level 7.8 mg/dl Total Bilirubin 0.6 mg/dl Direct Bilirubin 0.00 mg/dl Indirect 0.6 mg/dl Bilirubin Aspartate Amino 25 IU/L Transf (AST/SGOT ) Alanine 36 IU/L Aminotransferase (ALT/SGPT) Alkaline 76 IU/L Phosphatase Total Protein 6.1 g/dl Albumin 3.2 g/dl Globulin 2.90 g/dl Albumin/Globulin 1.10 Ratio Assessment and Plan Assessment/Diagnosis Diagnosis Major depressive disorder severe recurrent without psychosis Recommendation/Plan Medication Management Psychotherapy Multiple antipsychotics: No Discharge Disposition: Other Legal Status: Voluntary (Does not meet criteria for 5150 hold) YVON VILLAREAL NP Apr 01, 2019 12:55
[2019-04-01 14:00] VITALS: BP 117/58; PULSE 79; RESP 17
[2019-04-01 19:50] VITALS: BP 122/73; PULSE 74; RESP 20
--- NOTE | 2019-04-01 22:58 | CONS ---
Assessment/Plan Assessment/Plan Hospital Course (Demo Recall) assessment/impression - sepsis due to intra-abdominal infection - postoperative fluid collection 40 x 37 x 31 mm in the gallbladder fossa, likely infected - h/o laparoscopic cholecystectomy on 03/25/2019 - hepatic steatosis - adverse reaction to cipro (reaction unknown) and vancomycin (swelling and pruritus) recommendations - I recommend IR guided drainage if able - continue pip/tazo (03/30/2019-) - add antifungal as she is at risk for invasive fungal infections (risk factors: recent abdominal surgery, intra-abdominal fluid collection), fluconazole IV 200 mg daily management d/w Pt management d/w Pt Consultation Date/Type/Reason Admit Date/Time Mar 31, 2019 at 19:02 Date of Consultation: Apr 01, 2019 Type of Consult ID Reason for Consultation sepsis due to intra-abdominal infection Requesting Provider: YUSEF TENA Date/Time of Note DATE: 04/01/19 TIME: 22:42 Hx of Present Illness This is a 38 yo female who was admitted today for sepsis due to intra-abdominal infection. On 03/25/2019 Pt had laparoscopic cholecystectomy. Pt was discharged uneventfully. On 03/28/2019 Pt started having pain in the abdomen associated with chills and nausea. For the next several days Sx progressed. For example she started having high spiking fever, alternating chills and nightsweat, abd discomfor that radiates to the back, nausea and emesis, and diarrhea. she had temp 101.5F and HR>90 meeting the criteria for sepsis. CT abd/pel showed postoperative fluid collection 40 x 37 x 31 mm in the gallbladder fossa, small amount of free pelvic fluid and hepatic steatosis. Pt was started on IV vanc and pip/tazo. Then she developed swelling and pruritus around the neck. Vancomycin was stopped. Today Pt is no longer febrile but continues to have abdominal discomfort and chills. WILVER Tena requested ID consultation on this Pt. Constitutional: chills, diaphoresis, poor po Eyes: no complaints ENT: no complaints Respiratory: no complaints Cardiovascular: no complaints Gastrointestinal: pain, decreased appetite, diarrhea, nausea, vomiting Genitourinary: no complaints, other (currently having mesntruation) Musculoskeletal: no complaints Skin: no complaints Neurologic: no complaints Past Medical History Medical History: other (steatohepatitis, acute cholecystitis) Home Meds No Active Prescriptions or Reported Meds Medications Current Medications Piperacillin Sod/ Tazobactam Sod 100 ml @ 200 mls/hr Q6 IVPB Last administered on 04/01/19at 17:29; Admin Dose 200 MLS/HR; Start 04/01/19 at 06:00 Acetaminophen (Tylenol Tab) 650 mg Q4H PRN PO MILD PAIN(1-3)OR ELEVATED TEMP Last administered on 04/01/19at 19:18; Admin Dose 650 MG; Start 04/01/19 at 00:30 Ondansetron HCl (Zofran Inj) 4 mg Q6H PRN IV NAUSEA AND/OR VOMITING Last administered on 04/01/19at 19:17; Admin Dose 4 MG; Start 04/01/19 at 00:30 Acetaminophen/ Hydrocodone Bitart ([place] (5/325)) 1 tab Q4H PRN PO MODERATE PAIN LEVEL 4-6; Start 04/01/19 at 00:30 Morphine Sulfate (morphine) 2 mg Q4H PRN IV SEVERE PAIN LEVEL 7-10; Start 04/01/19 at 00:30 Dextrose/Sodium Chloride 1,000 ml @ 75 mls/hr [id number] IV Last administered on 04/01/19at 17:29; Admin Dose 75 MLS/HR; Start 04/01/19 at 00:30 Allergies: Coded Allergies: ciprofloxacin (Verified Allergy, Severe, 03/31/19) vancomycin (Verified Allergy, Intermediate, hives, 03/31/19) reaction in ER 03/31/19 Past Surgical History Past Surgical Hx: other (Status post laparoscopic cholecystectomy in March 25, 2019, status post surgery for right axillary abscess due to hidradenitis supra T. Nurys, status post surgery for left axillary abscess, status post bilateral ovarian cyst removal, status post surgery in the left wrist due to carpal tunnel syndrome status post tubal ligation) Social History Alcohol Use: none Smoking Status: Former smoker Drug Use: none Exam/Review of Systems Exam Vitals Vital Signs Date Temp Pulse Resp B/P (MAP) Pulse Ox O2 O2 Flow FiO2 Time Delivery Rate 04/01/19 98.1 74 20 122/73 100 19:50 (89) 04/01/19 Room Air 08:00 03/31/19 2.0 18:07 Intake and Output 03/31/19 03/31/19 04/01/19 1515:00 23:00 07:00 IntakeIntake Total 2380 ml 1900 ml BalanceBalance 2380 ml 1900 ml Constitutional: alert, oriented, obese Psych: no complaints, nl mood/affect Head: normocephalic, atraumatic Eyes: nl conjunctiva, EOMI, nl lids, nl sclera ENMT: nl external ears & nose, nl lips & teeth, nl nasal mucosa & septum, mucosa pink and moist Neck: supple, non-tender Respiratory: clear to auscultation, normal air movement Cardiovascular: regular rate and rhythm, nl pulses Gastrointestinal: soft, non-tender, surgical scars; No distended Musculoskeletal: nl extremities to inspection Extremities: No edema Neurological: TRIAL [employer] JUDGE II-XII intact, nl mental status, nl speech, nl strength Skin: nl turgor; No rash or lesions Results Result Diagram: 04/01/1944104/01/19441 Results 24hrs Laboratory Tests Test 04/01/19 04:42 White Blood Count 10.0 # Red Blood Count 3.92 L Hemoglobin 10.3 L Hematocrit 32.4 L Mean Corpuscular Volume 82.7 Mean Corpuscular Hemoglobin 26.3 L Mean Corpuscular Hemoglobin Concent 31.8 L Red Cell Distribution Width 14.0 Platelet Count 290 Mean Platelet Volume 9.3 Immature Granulocytes % 0.700 H Neutrophils % 60.5 Lymphocytes % 28.0 Monocytes % 7.0 Eosinophils % 3.4 Basophils % 0.4 Nucleated Red Blood Cells % 0.0 Immature Granulocytes # 0.070 H Neutrophils # 6.0 Lymphocytes # 2.8 Monocytes # 0.7 Eosinophils # 0.3 Basophils # 0.0 Nucleated Red Blood Cells # 0.0 Sodium Level 142 Potassium Level 3.9 Chloride Level 109 Carbon Dioxide Level 26 Anion Gap 7 Blood Urea Nitrogen 8 Creatinine 0.60 Est Glomerular Filtrat Rate mL/min > 60 Glucose Level 116 Calcium Level 7.8 L Total Bilirubin 0.6 Direct Bilirubin 0.00 Indirect Bilirubin 0.6 Aspartate Amino Transf (AST/SGOT) 25 Alanine Aminotransferase (ALT/SGPT) 36 Alkaline Phosphatase 76 Total Protein 6.1 # Albumin 3.2 #L Globulin 2.90 Albumin/Globulin Ratio 1.10 Medications Medication Current Medications Piperacillin Sod/ Tazobactam Sod 100 ml @ 200 mls/hr Q6 IVPB Last administered on 04/01/19 17:29; Admin Dose 200 MLS/HR; Start 04/01/19 at 06:00 Acetaminophen (Tylenol Tab) 650 mg Q4H PRN PO MILD PAIN(1-3)OR ELEVATED TEMP Last administered on 04/01/19 19:18; Admin Dose 650 MG; Start 04/01/19 at 00:30 Ondansetron HCl (Zofran Inj) 4 mg Q6H PRN IV NAUSEA AND/OR VOMITING Last administered on 04/01/19 19:17; Admin Dose 4 MG; Start 04/01/19 at 00:30 Acetaminophen/ Hydrocodone Bitart ([place] (5/325)) 1 tab Q4H PRN PO MODERATE PAIN LEVEL 4-6; Start 04/01/19 at 00:30 Morphine Sulfate (morphine) 2 mg Q4H PRN IV SEVERE PAIN LEVEL 7-10; Start 04/01/19 at 00:30 Dextrose/Sodium Chloride 1,000 ml @ 75 mls/hr [id number] IV Last administered on 04/01/19 17:29; Admin Dose 75 MLS/HR; Start 04/01/19 at 00:30 MULU IRIZARRY M.D. Apr 01, 2019 22:53
[2019-04-02] MEDS: FLUCONAZOLE 200 MG (PMX) 100 ML IVPB SCH ×2 (00:09→22:36)
[2019-04-02] MEDS: PIPER-TAZO 3.375 GM IV (PMX) 100 ML IVPB SCH ×5 (01:11→23:58)
[2019-04-02 02:45] VITALS: BP 102/56; PULSE 80; RESP 19
[2019-04-02 08:00] VITALS: BP 98/59; PULSE 71; RESP 17
[2019-04-02] MEDS: ONDANSETRON 4 MG INJ IV PRN ×2 (11:10→19:48)
[2019-04-02] MEDS: ACETAMINOPHEN 325 MG TAB PO PRN ×2 (11:20→19:49)
[2019-04-02] MEDS: DEXTROSE 5%-0.45% NACL 1,000 ML IV SCH (13:00)
[2019-04-02 14:00] VITALS: BP 102/64; PULSE 74; RESP 18
--- NOTE | 2019-04-02 17:39 | PN ---
Date/Time of Note Date/Time of Note DATE: 04/02/19 TIME: 17:38 Assessment/Plan VTE Prophylaxis Risk score (from N[facility])>0 risk: 2 SCD applied (from [facility]): Yes Pharmacological prophylaxis: other Lines/Catheters IV Catheter Type (from Nrs): Peripheral IV Assessment/Plan Assessment/Plan s/p lap kathrin with fluid collection being treated with abx Result Diagram: 04/02/1921 04/02/19 0521 Results 24hrs Laboratory Tests Test 04/02/19 05:21 White Blood Count 9.1 Red Blood Count 4.07 L Hemoglobin 10.8 L Hematocrit 33.8 L Mean Corpuscular Volume 83.0 Mean Corpuscular Hemoglobin 26.5 L Mean Corpuscular Hemoglobin Concent 32.0 Red Cell Distribution Width 13.9 Platelet Count 288 Mean Platelet Volume 9.0 Immature Granulocytes % 1.000 H Neutrophils % 65.5 Lymphocytes % 22.1 Monocytes % 5.9 Eosinophils % 5.1 Basophils % 0.4 Nucleated Red Blood Cells % 0.0 Immature Granulocytes # 0.090 H Neutrophils # 5.9 Lymphocytes # 2.0 Monocytes # 0.5 Eosinophils # 0.5 Basophils # 0.0 Nucleated Red Blood Cells # 0.0 Sodium Level 140 Potassium Level 4.1 Chloride Level 109 Carbon Dioxide Level 26 Anion Gap 5 Blood Urea Nitrogen 7 Creatinine 0.71 Est Glomerular Filtrat Rate mL/min > 60 Glucose Level 124 Calcium Level 8.3 L Subjective 24 Hr Interval Summary Free Text/Dictation patient is doing better slight nausea but tolerating food and less pain than before Exam/Review of Systems Exam Vitals Vital Signs Date Temp Pulse Resp B/P (MAP) Pulse Ox O2 O2 Flow FiO2 Time Delivery Rate 04/02/19 97.9 74 18 102/64 96 Room Air 14:00 (77) 03/31/19 2.0 18:07 Intake and Output 04/01/19 04/01/19 04/02/19 1515:00 23:00 07:00 IntakeIntake Total 820 ml 1740 ml 1700 ml BalanceBalance 820 ml 1740 ml 1700 ml Exam left axillary wound slightly open no issues no drainage abd soft c/d/i Results Results 24hrs Laboratory Tests Test 04/02/19 05:21 White Blood Count 9.1 Red Blood Count 4.07 L Hemoglobin 10.8 L Hematocrit 33.8 L Mean Corpuscular Volume 83.0 Mean Corpuscular Hemoglobin 26.5 L Mean Corpuscular Hemoglobin Concent 32.0 Red Cell Distribution Width 13.9 Platelet Count 288 Mean Platelet Volume 9.0 Immature Granulocytes % 1.000 H Neutrophils % 65.5 Lymphocytes % 22.1 Monocytes % 5.9 Eosinophils % 5.1 Basophils % 0.4 Nucleated Red Blood Cells % 0.0 Immature Granulocytes # 0.090 H Neutrophils # 5.9 Lymphocytes # 2.0 Monocytes # 0.5 Eosinophils # 0.5 Basophils # 0.0 Nucleated Red Blood Cells # 0.0 Sodium Level 140 Potassium Level 4.1 Chloride Level 109 Carbon Dioxide Level 26 Anion Gap 5 Blood Urea Nitrogen 7 Creatinine 0.71 Est Glomerular Filtrat Rate mL/min > 60 Glucose Level 124 Calcium Level 8.3 L Medications Medication Current Medications Piperacillin Sod/ Tazobactam Sod 100 ml @ 200 mls/hr Q6 IVPB Last administered on 04/02/19 11:11; Admin Dose 200 MLS/HR; Start 04/01/19 at 06:00 Acetaminophen (Tylenol Tab) 650 mg Q4H PRN PO MILD PAIN(1-3)OR ELEVATED TEMP Last administered on 04/02/19 11:20; Admin Dose 650 MG; Start 04/01/19 at 00:30 Ondansetron HCl (Zofran Inj) 4 mg Q6H PRN IV NAUSEA AND/OR VOMITING Last administered on 04/02/19 11:10; Admin Dose 4 MG; Start 04/01/19 at 00:30 Acetaminophen/ Hydrocodone Bitart ([place] (5/325)) 1 tab Q4H PRN PO MODERATE PAIN LEVEL 4-6; Start 04/01/19 at 00:30 Morphine Sulfate (morphine) 2 mg Q4H PRN IV SEVERE PAIN LEVEL 7-10; Start 04/01/19 at 00:30 Dextrose/Sodium Chloride 1,000 ml @ 50 mls/hr Q20H IV Last administered on 04/02/19at 13:00; Admin Dose 75 MLS/HR; Start 04/01/19 at 00:30 Fluconazole 100 ml @ 100 mls/hr Q24H IVPB Last administered on 04/02/19 00:09; Admin Dose 100 MLS/HR; Start 04/01/19 at 23:00 Ange OWUSU Apr 02, 2019 17:39
--- NOTE | 2019-04-02 18:31 | CONS ---
Assessment/Plan Assessment/Plan Hospital Course (Demo Recall) assessment/impression - sepsis due to intra-abdominal infection - postoperative fluid collection 40 x 37 x 31 mm in the gallbladder fossa, likely infected - h/o laparoscopic cholecystectomy on 03/25/2019 - hepatic steatosis - adverse reaction to cipro (reaction unknown) and vancomycin (swelling and pruritus) recommendations - continue pip/tazo (03/30/2019-) and fluconazole (04/01/19-) - when Pt's ready to go home, I recommend IV ertapenem and PO fluconazole for 2- 3 weeks - I recommend case management consult to schedule follow up CT 2-3 weeks after discharge - I recommend that antibiotics be continued until CT showed no more or very minimal fluid collection left in her abdomen management d/w Pt, her RN Chandana and Dr. Johnson Consultation Date/Type/Reason Admit Date/Time Mar 31, 2019 at 19:02 Initial Consult Date 04/01/19 Type of Consult ID Requesting Provider: YUSEF UGALDE Date/Time of Note DATE: 04/02/19 TIME: 18:27 24 HR Interval Summary Constitutional: improved, chills; No poor po Detailed Summary Eyes: no complaints ENT: no complaints Respiratory: no complaints Cardiovascular: no complaints Gastrointestinal: diarrhea (yesterday, no BM today), nausea; No pain, No vomiting Genitourinary: no complaints Musculoskeletal: no complaints Skin: no complaints Neurologic: no complaints Exam/Review of Systems Exam Vitals Vital Signs Date Temp Pulse Resp B/P (MAP) Pulse Ox O2 O2 Flow FiO2 Time Delivery Rate 04/02/19 97.9 74 18 102/64 96 Room Air 14:00 (77) 03/31/19 2.0 18:07 Intake and Output 04/01/19 04/01/19 04/02/19 1515:00 23:00 07:00 IntakeIntake Total 820 ml 1740 ml 1700 ml BalanceBalance 820 ml 1740 ml 1700 ml Constitutional: alert, oriented, well developed Psych: no complaints, nl mood/affect Head: normocephalic, atraumatic Eyes: nl conjunctiva, nl lids, nl sclera ENMT: nl external ears & nose, nl nasal mucosa & septum, mucosa pink and moist Neck: non-tender Respiratory: clear to auscultation, normal air movement Cardiovascular: regular rate and rhythm, nl pulses Gastrointestinal: soft, non-tender, bowel sounds; No distended, No tender Musculoskeletal: nl extremities to inspection Extremities: normal pulses Skin: nl turgor; No rash or lesions Results Result Diagram: 04/02/1952004/02/1921 Results 24hrs Laboratory Tests Test 04/02/19 05:21 White Blood Count 9.1 Red Blood Count 4.07 L Hemoglobin 10.8 L Hematocrit 33.8 L Mean Corpuscular Volume 83.0 Mean Corpuscular Hemoglobin 26.5 L Mean Corpuscular Hemoglobin Concent 32.0 Red Cell Distribution Width 13.9 Platelet Count 288 Mean Platelet Volume 9.0 Immature Granulocytes % 1.000 H Neutrophils % 65.5 Lymphocytes % 22.1 Monocytes % 5.9 Eosinophils % 5.1 Basophils % 0.4 Nucleated Red Blood Cells % 0.0 Immature Granulocytes # 0.090 H Neutrophils # 5.9 Lymphocytes # 2.0 Monocytes # 0.5 Eosinophils # 0.5 Basophils # 0.0 Nucleated Red Blood Cells # 0.0 Sodium Level 140 Potassium Level 4.1 Chloride Level 109 Carbon Dioxide Level 26 Anion Gap 5 Blood Urea Nitrogen 7 Creatinine 0.71 Est Glomerular Filtrat Rate mL/min > 60 Glucose Level 124 Calcium Level 8.3 L Medications Medication Current Medications Piperacillin Sod/ Tazobactam Sod 100 ml @ 200 mls/hr Q6 IVPB Last administered on 04/02/19at 18:17; Admin Dose 200 MLS/HR; Start 04/01/19 at 06:00 Acetaminophen (Tylenol Tab) 650 mg Q4H PRN PO MILD PAIN(1-3)OR ELEVATED TEMP Last administered on 04/02/19at 11:20; Admin Dose 650 MG; Start 04/01/19 at 00:30 Ondansetron HCl (Zofran Inj) 4 mg Q6H PRN IV NAUSEA AND/OR VOMITING Last administered on 04/02/19at 11:10; Admin Dose 4 MG; Start 04/01/19 at 00:30 Acetaminophen/ Hydrocodone Bitart ([place] (5/325)) 1 tab Q4H PRN PO MODERATE PAIN LEVEL 4-6; Start 04/01/19 at 00:30 Morphine Sulfate (morphine) 2 mg Q4H PRN IV SEVERE PAIN LEVEL 7-10; Start 04/01/19 at 00:30 Dextrose/Sodium Chloride 1,000 ml @ 50 mls/hr Q20H IV Last administered on 04/02/19at 13:00; Admin Dose 75 MLS/HR; Start 04/01/19 at 00:30 Fluconazole 100 ml @ 100 mls/hr Q24H IVPB Last administered on 04/02/19at 00:09; Admin Dose 100 MLS/HR; Start 04/01/19 at 23:00 MULU IRIZARRY M.D. Apr 02, 2019 18:31
--- NOTE | 2019-04-02 18:56 | PN ---
Date/Time of Note Date/Time of Note DATE: 04/02/19 TIME: 18:40 Assessment/Plan VTE Pro[place]axis [place] [facility]: 2 SCD [place] [facility] Yes Pharmacological prophylaxis: NA/contraindicated Pharm contraindication: surgical contra Lines/Catheters IV C[facility]ter Type (from [facility] Peripheral IV Assessment/Plan Hospital Course Patient complaints of abdominal pain, remains hemodynamically stable afebrile, plan of care discussed with Dr. Son and Dr. Zhu, ordered gallbladder fossa fluid drainage by IR, keep patient n.p.o. starting midnight. Assessment/Plan -Sepsis secondary to postoperative abscess, continue IV fluids and broad- spectrum antibiotics. Dr. Son is following in infection disease consultation. -Postoperative abscess -History of cholecystectomy on March 25, 2019. Dr. Zhu is following in general surgery consultation. Further recommendations based on clinical course. Plan of care discussed with Dr. Johnson. Result Diagram: 04/02/19 0521 04/02/19 0521 Results 24hrs Laboratory Tests Test 04/02/19 05:21 White Blood Count 9.1 Red Blood Count 4.07 L Hemoglobin 10.8 L Hematocrit 33.8 L Mean Corpuscular Volume 83.0 Mean Corpuscular Hemoglobin 26.5 L Mean Corpuscular Hemoglobin Concent 32.0 Red Cell Distribution Width 13.9 Platelet Count 288 Mean Platelet Volume 9.0 Immature Granulocytes % 1.000 H Neutrophils % 65.5 Lymphocytes % 22.1 Monocytes % 5.9 Eosinophils % 5.1 Basophils % 0.4 Nucleated Red Blood Cells % 0.0 Immature Granulocytes # 0.090 H Neutrophils # 5.9 Lymphocytes # 2.0 Monocytes # 0.5 Eosinophils # 0.5 Basophils # 0.0 Nucleated Red Blood Cells # 0.0 Sodium Level 140 Potassium Level 4.1 Chloride Level 109 Carbon Dioxide Level 26 Anion Gap 5 Blood Urea Nitrogen 7 Creatinine 0.71 Est Glomerular Filtrat Rate mL/min > 60 Glucose Level 124 Calcium Level 8.3 L Exam/Review of Systems Exam Vitals Vital Signs Date Temp Pulse Resp B/P (MAP) Pulse Ox O2 O2 Flow FiO2 Time Delivery Rate 04/02/19 97.9 74 18 102/64 96 Room Air 14:00 (77) 03/31/19 2.0 18:07 Intake and Output 04/01/19 04/01/1904/02/19 1515:00 23:00 07:00 IntakeIntake Total 820 ml 1740 ml 1700 ml BalanceBalance 820 ml 1740 ml 1700 ml Exam Constitutional: alert, oriented ENMT: nl external ears & nose Neck: supple Respiratory: clear to auscultation Cardiovascular: nl pulses Gastrointestinal: soft, tender, other (Laparoscopic incision intact with [place]) Musculoskeletal: nl extremities to inspection Extremities: normal pulses Neurological: nl mental status Skin: other (Left axillary surgical wound) Results Results 24hrs Laboratory Tests Test 04/02/19 05:21 White Blood Count 9.1 Red Blood Count 4.07 L Hemoglobin 10.8 L Hematocrit 33.8 L Mean Corpuscular Volume 83.0 Mean Corpuscular Hemoglobin 26.5 L Mean Corpuscular Hemoglobin Concent 32.0 Red Cell Distribution Width 13.9 Platelet Count 288 Mean Platelet Volume 9.0 Immature Granulocytes % 1.000 H Neutrophils % 65.5 Lymphocytes % 22.1 Monocytes % 5.9 Eosinophils % 5.1 Basophils % 0.4 Nucleated Red Blood Cells % 0.0 Immature Granulocytes # 0.090 H Neutrophils # 5.9 Lymphocytes # 2.0 Monocytes # 0.5 Eosinophils # 0.5 Basophils # 0.0 Nucleated Red Blood Cells # 0.0 Sodium Level 140 Potassium Level 4.1 Chloride Level 109 Carbon Dioxide Level 26 Anion Gap 5 Blood Urea Nitrogen 7 Creatinine 0.71 Est Glomerular Filtrat Rate mL/min > 60 Glucose Level 124 Calcium Level 8.3 L Medications Medication Current Medications Piperacillin Sod/ Tazobactam Sod 100 ml @ 200 mls/hr Q6 IVPB Last administered on 04/02/19at 18:17; Admin Dose 200 MLS/HR; Start 04/01/19 at 06:00 Acetaminophen (Tylenol Tab) 650 mg Q4H PRN PO MILD PAIN(1-3)OR ELEVATED TEMP Last administered on 04/02/19 11:20; Admin Dose 650 MG; Start 04/01/19 at 00:30 Ondansetron HCl (Zofran Inj) 4 mg Q6H PRN IV NAUSEA AND/OR VOMITING Last administered on 04/02/19 11:10; Admin Dose 4 MG; Start 04/01/19 at 00:30 Acetaminophen/ Hydrocodone Bitart ([place] (5/325)) 1 tab Q4H PRN PO MODERATE PAIN LEVEL 4-6; Start 04/01/19 at 00:30 Morphine Sulfate (morphine) 2 mg Q4H PRN IV SEVERE PAIN LEVEL 7-10; Start 04/01/19 at 00:30 Dextrose/Sodium Chloride 1,000 ml @ 50 mls/hr Q20H IV Last administered on 04/02/19at 13:00; Admin Dose 75 MLS/HR; Start 04/01/19 at 00:30 Fluconazole 100 ml @ 100 mls/hr Q24H IVPB Last administered on 04/02/19at 00:09; Admin Dose 100 MLS/HR; Start 04/01/19 at 23:00 YUSEF UGALDE Apr 02, 2019 18:50
[2019-04-02 20:48] VITALS: BP 107/67; PULSE 69; RESP 19
[2019-04-03 02:00] VITALS: BP 111/55; PULSE 64; RESP 19
[2019-04-03] MEDS: DEXTROSE 5%-0.45% NACL 1,000 ML IV SCH (05:46)
[2019-04-03] MEDS: PIPER-TAZO 3.375 GM IV (PMX) 100 ML IVPB SCH ×3 (05:46→18:51)
[2019-04-03 07:53] VITALS: BP 100/56; PULSE 64; RESP 16
[2019-04-03] MEDS ORDERED: FENTAnyl 50 MCG/ML VIAL ONE ×2 (11:46→12:49)
[2019-04-03] MEDS ORDERED: MIDAZOLAM 1 MG/ML 2 ML INJ ONE (11:46)
[2019-04-03] MEDS ORDERED: LIDOCAINE 1% (MDV) 20 ML INJ ONE (11:46)
[2019-04-03] MEDS ORDERED: SOD CHLORIDE 0.9% 500 ML ONE (11:46)
[2019-04-03] MEDS ORDERED: ONDANSETRON 4 MG INJ ONE (13:48)
[2019-04-03] MEDS ORDERED: IOHEXOL 300MG/ML 150 ML BTL ONE (14:01)
[2019-04-03] MEDS ORDERED: SOD CHLORIDE 0.9% 100 ML ONE (14:01)
[2019-04-03 14:53] VITALS: BP 122/57; PULSE 75; RESP 16
[2019-04-03] MEDS: ACETAMINOPHEN 325 MG TAB PO PRN ×2 (15:13→22:09)
--- NOTE | 2019-04-03 17:00 | CONS ---
Assessment/Plan Assessment/Plan Hospital Course (Demo Recall) assessment/impression - sepsis due to intra-abdominal infection - postoperative fluid collection 40 x 37 x 31 mm in the gallbladder fossa, likely infected - s/p CT guided drainage of the above fluid. repeat CT showed residual fluid collection in the gallbladder fossa 3.4 x 2.7 x 1.5 cm which is significantly smaller than the prior study which demonstrated the fluid collection - h/o laparoscopic cholecystectomy on 03/25/2019 - hepatic steatosis - b/l adnexal complex cystic lesions on CT - adverse reaction to cipro (reaction unknown) and vancomycin (swelling and pruritus) recommendations - will follow up on bacterial, fungal and AFB cultures of the drained pus. SANDRA Coreas instructed Dextor at lab to add anaerobic culture to this specimen - continue pip/tazo (03/30/2019-) and fluconazole (04/01/19-) - will adjust her antibiotics cased on the final culture result. If the culture is negative, I recommend ertapenem and fluconazole - I recommend case management consult to schedule follow up CT 2-3 weeks after discharge - I recommend that antibiotics be continued until CT showed no more or very minimal fluid collection left in her abdomen management d/w Pt, her SANDRA Phelan and INTERN ARCHITECT Mallika Consultation Date/Type/Reason Admit Date/Time Mar 31, 2019 at 19:02 Initial Consult Date 04/01/19 Type of Consult ID Requesting Provider: YUSEF UGALDE Date/Time of Note DATE: 04/03/19 TIME: 16:53 24 HR Interval Summary Free Text/Dictation s/p CT guided drainage of the abscess Constitutional: improved Detailed Summary Eyes: no complaints ENT: no complaints Respiratory: no complaints Cardiovascular: no complaints Gastrointestinal: nausea Genitourinary: no complaints Musculoskeletal: no complaints Skin: no complaints Neurologic: no complaints Exam/Review of Systems Exam Vitals Vital Signs Date Temp Pulse Resp B/P (MAP) Pulse Ox O2 O2 Flow FiO2 Time Delivery Rate 04/03/19 98.3 75 16 122/57 97 14:53 (78) 04/02/19 Room Air 14:00 03/31/19 2.0 18:07 Intake and Output 04/02/19 04/02/19 04/03/19 1515:00 23:00 07:00 IntakeIntake Total 1350 ml 1300 ml 1620 ml BalanceBalance 1350 ml 1300 ml 1620 ml Constitutional: alert, oriented, well developed Psych: no complaints Head: normocephalic, atraumatic Eyes: nl conjunctiva, nl lids, nl sclera ENMT: nl external ears & nose, nl nasal mucosa & septum, mucosa pink and moist Neck: supple Respiratory: clear to auscultation, normal air movement Cardiovascular: regular rate and rhythm, nl pulses Gastrointestinal: soft, bowel sounds, distended (slightly), surgical scars (wiht [place]), other (RUQ is sensitive to touch); No firm, No tender Musculoskeletal: nl extremities to inspection Extremities: No edema Neurological: [employer] II-XII intact, nl mental status, nl speech Skin: nl turgor; No rash or lesions Results Result Diagram: 04/03/1918 04/03/19 0618 Results 24hrs Laboratory Tests Test 04/03/19 06:18 White Blood Count 8.9 Red Blood Count 4.13 L Hemoglobin 10.7 L Hematocrit 34.5 L Mean Corpuscular Volume 83.5 Mean Corpuscular Hemoglobin 25.9 L Mean Corpuscular Hemoglobin Concent 31.0 L Red Cell Distribution Width 14.2 Platelet Count 306 Mean Platelet Volume 9.2 Immature Granulocytes % 0.800 H Neutrophils % 65.5 Lymphocytes % 22.5 Monocytes % 6.0 Eosinophils % 5.0 Basophils % 0.2 Nucleated Red Blood Cells % 0.0 Immature Granulocytes # 0.070 H Neutrophils # 5.8 Lymphocytes # 2.0 Monocytes # 0.5 Eosinophils # 0.4 Basophils # 0.0 Nucleated Red Blood Cells # 0.0 Sodium Level 140 Potassium Level 4.1 Chloride Level 107 Carbon Dioxide Level 26 Anion Gap 7 Blood Urea Nitrogen 11 Creatinine 0.75 Est Glomerular Filtrat Rate mL/min > 60 Glucose Level 104 Calcium Level 8.5 Medications Medication Current Medications Piperacillin Sod/ Tazobactam Sod 100 ml @ 200 mls/hr Q6 IVPB Last administered on 04/03/19at 15:03; Admin Dose 200 MLS/HR; Start 04/01/19 at 06:00 Acetaminophen (Tylenol Tab) 650 mg Q4H PRN PO MILD PAIN(1-3)OR ELEVATED TEMP Last administered on 04/03/19at 15:13; Admin Dose 650 MG; Start 04/01/19 at 00:30 Ondansetron HCl (Zofran Inj) 4 mg Q6H PRN IV NAUSEA AND/OR VOMITING Last administered on 04/02/19at 19:48; Admin Dose 4 MG; Start 04/01/19 at 00:30 Acetaminophen/ Hydrocodone Bitart ([place] (5/325)) 1 tab Q4H PRN PO MODERATE PAIN LEVEL 4-6; Start 04/01/19 at 00:30 Morphine Sulfate (morphine) 2 mg Q4H PRN IV SEVERE PAIN LEVEL 7-10; Start 04/01/19 at 00:30 Dextrose/Sodium Chloride 1,000 ml @ 50 mls/hr Q20H IV Last administered on 04/03/19at 05:46; Admin Dose 50 MLS/HR; Start 04/01/19 at 00:30 Fluconazole 100 ml @ 100 mls/hr Q24H IVPB Last administered on 04/02/19at 22:36; Admin Dose 100 MLS/HR; Start 04/01/19 at 23:00 MULU IRIZARRY M.D. Apr 03, 2019 17:00
--- NOTE | 2019-04-03 17:04 | PN ---
Date/Time of Note Date/Time of Note DATE: 04/03/19 TIME: 17:02 Assessment/Plan VTE Prophylaxis Risk score (from N[facility])>0 risk: 2 SCD applied (from [facility]): Yes Pharmacological prophylaxis: NA/contraindicated Pharm contraindication: surgical contra Lines/Catheters IV C[facility] Type [facility]): Peripheral IV Assessment/Plan Hospital Course Patient underwent gallbladder fossa fluid drainage by IR, patient tolerated procedure well, patient is currently lethargic but easily arousable. Assessment/Plan -Sepsis secondary to postoperative abscess, continue antibiotics per ID. Dr. Son is following in infection disease consultation. -Postoperative abscess -History of cholecystectomy on March 25, 2019. Dr. Zhu is following in general surgery consultation. Further recommendations based on clinical course. Plan of care discussed with Dr. Johnson. Result Diagram: 04/03/19 0618 04/03/19 0618 Results 24hrs Laboratory Tests Test 04/03/19 06:18 White Blood Count 8.9 Red Blood Count 4.13 L Hemoglobin 10.7 L Hematocrit 34.5 L Mean Corpuscular Volume 83.5 Mean Corpuscular Hemoglobin 25.9 L Mean Corpuscular Hemoglobin Concent 31.0 L Red Cell Distribution Width 14.2 Platelet Count 306 Mean Platelet Volume 9.2 Immature Granulocytes % 0.800 H Neutrophils % 65.5 Lymphocytes % 22.5 Monocytes % 6.0 Eosinophils % 5.0 Basophils % 0.2 Nucleated Red Blood Cells % 0.0 Immature Granulocytes # 0.070 H Neutrophils # 5.8 Lymphocytes # 2.0 Monocytes # 0.5 Eosinophils # 0.4 Basophils # 0.0 Nucleated Red Blood Cells # 0.0 Sodium Level 140 Potassium Level 4.1 Chloride Level 107 Carbon Dioxide Level 26 Anion Gap 7 Blood Urea Nitrogen 11 Creatinine 0.75 Est Glomerular Filtrat Rate mL/min > 60 Glucose Level 104 Calcium Level 8.5 Exam/Review of Systems Exam Vitals Vital Signs Date Temp Pulse Resp B/P (MAP) Pulse Ox O2 O2 Flow FiO2 Time Delivery Rate 04/03/19 98.3 75 16 122/57 97 14:53 (78) 04/02/19 Room Air 14:00 03/31/19 2.0 18:07 Intake and Output 04/02/19 04/02/19 04/03/19 1515:00 23:00 07:00 IntakeIntake Total 1350 ml 1300 ml 1620 ml BalanceBalance 1350 ml 1300 ml 1620 ml Exam Constitutional: alert Respiratory: clear to auscultation Cardiovascular: nl pulses Gastrointestinal: soft, tender, other (Laparoscopic incision intact with [place]) Musculoskeletal: nl extremities to inspection Extremities: normal pulses Neurological: nl mental status Skin: other (Left axillary surgical wound) Results Results 24hrs Laboratory Tests Test 04/03/19 06:18 White Blood Count 8.9 Red Blood Count 4.13 L Hemoglobin 10.7 L Hematocrit 34.5 L Mean Corpuscular Volume 83.5 Mean Corpuscular Hemoglobin 25.9 L Mean Corpuscular Hemoglobin Concent 31.0 L Red Cell Distribution Width 14.2 Platelet Count 306 Mean Platelet Volume 9.2 Immature Granulocytes % 0.800 H Neutrophils % 65.5 Lymphocytes % 22.5 Monocytes % 6.0 Eosinophils % 5.0 Basophils % 0.2 Nucleated Red Blood Cells % 0.0 Immature Granulocytes # 0.070 H Neutrophils # 5.8 Lymphocytes # 2.0 Monocytes # 0.5 Eosinophils # 0.4 Basophils # 0.0 Nucleated Red Blood Cells # 0.0 Sodium Level 140 Potassium Level 4.1 Chloride Level 107 Carbon Dioxide Level 26 Anion Gap 7 Blood Urea Nitrogen 11 Creatinine 0.75 Est Glomerular Filtrat Rate mL/min > 60 Glucose Level 104 Calcium Level 8.5 Medications Medication Current Medications Piperacillin Sod/ Tazobactam Sod 100 ml @ 200 mls/hr Q6 IVPB Last administered on 04/03/19at 15:03; Admin Dose 200 MLS/HR; Start 04/01/19 at 06:00 Acetaminophen (Tylenol Tab) 650 mg Q4H PRN PO MILD PAIN(1-3)OR ELEVATED TEMP Last administered on 04/03/19at 15:13; Admin Dose 650 MG; Start 04/01/19 at 00:30 Ondansetron HCl (Zofran Inj) 4 mg Q6H PRN IV NAUSEA AND/OR VOMITING Last administered on 04/02/19at 19:48; Admin Dose 4 MG; Start 04/01/19 at 00:30 Acetaminophen/ Hydrocodone Bitart ([place] (5/325)) 1 tab Q4H PRN PO MODERATE PAIN LEVEL 4-6; Start 04/01/19 at 00:30 Morphine Sulfate (morphine) 2 mg Q4H PRN IV SEVERE PAIN LEVEL 7-10; Start 04/01/19 at 00:30 Dextrose/Sodium Chloride 1,000 ml @ 50 mls/hr Q20H IV Last administered on 04/03/19at 05:46; Admin Dose 50 MLS/HR; Start 04/01/19 at 00:30 Fluconazole 100 ml @ 100 mls/hr Q24H IVPB Last administered on 04/02/19at 2 2:36; Admin Dose 100 MLS/HR; Start 04/01/19 at 23:00 YUSEF UGALDE Apr 03, 2019 17:04
[2019-04-03 19:52] VITALS: BP 107/65; PULSE 81; RESP 16
[2019-04-03] MEDS: SENNA TAB PO SCH (21:00)
[2019-04-03] MEDS: FLUCONAZOLE 200 MG (PMX) 100 ML IVPB SCH (23:13)
[2019-04-04] MEDS: PIPER-TAZO 3.375 GM IV (PMX) 100 ML IVPB SCH ×5 (00:30→23:53)
[2019-04-04 02:10] VITALS: BP 94/50; PULSE 64; RESP 16
[2019-04-04 07:25] VITALS: BP 95/55; PULSE 74; RESP 16
--- NOTE | 2019-04-04 08:39 | PN ---
Date/Time of Note Date/Time of Note DATE: 04/04/19 TIME: 08:38 Assessment/Plan VTE Prophylaxis Risk score (from [facility])>0 risk: 2 SCD applied (from [facility]): Yes Pharmacological prophylaxis: other Lines/Catheters IV Catheter Type (from [facility]): Peripheral IV Assessment/Plan Assessment/Plan s/p lap kathrin with seroma aspiration dc home on cipro and flagyl and f/u in 2 weeks Result Diagram: 04/04/19 0638 04/04/19 0638 Results 24hrs Laboratory Tests Test 04/04/19 06:38 White Blood Count 10.0 Red Blood Count 4.12 L Hemoglobin 10.9 L Hematocrit 34.2 L Mean Corpuscular Volume 83.0 Mean Corpuscular Hemoglobin 26.5 L Mean Corpuscular Hemoglobin Concent 31.9 L Red Cell Distribution Width 13.9 Platelet Count 329 Mean Platelet Volume 9.0 Immature Granulocytes % 0.600 H Neutrophils % 67.9 Lymphocytes % 20.9 Monocytes % 5.2 Eosinophils % 5.0 Basophils % 0.4 Nucleated Red Blood Cells % 0.0 Immature Granulocytes # 0.060 H Neutrophils # 6.8 Lymphocytes # 2.1 Monocytes # 0.5 Eosinophils # 0.5 Basophils # 0.0 Nucleated Red Blood Cells # 0.0 Sodium Level 140 Potassium Level 4.2 Chloride Level 106 Carbon Dioxide Level 27 Anion Gap 7 Blood Urea Nitrogen 9 Creatinine 0.77 Est Glomerular Filtrat Rate mL/min > 60 Glucose Level 104 Calcium Level 8.6 Subjective 24 Hr Interval Summary Free Text/Dictation patient doing well and tolerating diet Exam/Review of Systems Exam Vitals Vital Signs Date Temp Pulse Resp B/P (MAP) Pulse Ox O2 O2 Flow FiO2 Time Delivery Rate 04/04/19 98.1 74 16 95/55 (68) 97 Room Air 07:25 03/31/19 2.0 18:07 Intake and Output 04/03/19 04/03/19 04/04/19 1414:59 22:59 06:59 IntakeIntake Total 1200 ml 750 ml BalanceBalance 1200 ml 750 ml Exam c/d/i Results Results 24hrs Laboratory Tests Test 04/04/19 06:38 White Blood Count 10.0 Red Blood Count 4.12 L Hemoglobin 10.9 L Hematocrit 34.2 L Mean Corpuscular Volume 83.0 Mean Corpuscular Hemoglobin 26.5 L Mean Corpuscular Hemoglobin Concent 31.9 L Red Cell Distribution Width 13.9 Platelet Count 329 Mean Platelet Volume 9.0 Immature Granulocytes % 0.600 H Neutrophils % 67.9 Lymphocytes % 20.9 Monocytes % 5.2 Eosinophils % 5.0 Basophils % 0.4 Nucleated Red Blood Cells % 0.0 Immature Granulocytes # 0.060 H Neutrophils # 6.8 Lymphocytes # 2.1 Monocytes # 0.5 Eosinophils # 0.5 Basophils # 0.0 Nucleated Red Blood Cells # 0.0 Sodium Level 140 Potassium Level 4.2 Chloride Level 106 Carbon Dioxide Level 27 Anion Gap 7 Blood Urea Nitrogen 9 Creatinine 0.77 Est Glomerular Filtrat Rate mL/min > 60 Glucose Level 104 Calcium Level 8.6 Medications Medication Current Medications Piperacillin Sod/ Tazobactam Sod 100 ml @ 200 mls/hr Q6 IVPB Last administered on 04/04/19 06:09; Admin Dose 200 MLS/HR; Start 04/01/19 at 06:00 Acetaminophen (Tylenol Tab) 650 mg Q4H PRN PO MILD PAIN(1-3)OR ELEVATED TEMP Last administered on 04/03/19 22:09; Admin Dose 650 MG; Start 04/01/19 at 00:30 Ondansetron HCl (Zofran Inj) 4 mg Q6H PRN IV NAUSEA AND/OR VOMITING Last administered on 04/02/19at 19:48; Admin Dose 4 MG; Start 04/01/19 at 00:30 Acetaminophen/ Hydrocodone Bitart ([place] (5/325)) 1 tab Q4H PRN PO MODERATE PAIN LEVEL 4-6; Start 04/01/19 at 00:30 Morphine Sulfate (morphine) 2 mg Q4H PRN IV SEVERE PAIN LEVEL 7-10; Start 04/01/19 at 00:30 Fluconazole 100 ml @ 100 mls/hr Q24H IVPB Last administered on 04/03/19 23:13; Admin Dose 100 MLS/HR; Start 04/01/19 at 23:00 Senna (Senokot) 2 tab BID PO ; Start 04/03/19 at 21:00 Ange OWUSU Apr 04, 2019 08:39
[2019-04-04] MEDS: SENNA TAB PO SCH ×2 (09:00→20:39)
[2019-04-04] MEDS: ACETAMINOPHEN 325 MG TAB PO PRN ×2 (12:34→20:39)
[2019-04-04 14:09] VITALS: BP 99/56; PULSE 61; RESP 16
[2019-04-04 19:44] VITALS: BP 95/54; PULSE 65; RESP 18
--- NOTE | 2019-04-04 21:18 | CONS ---
Assessment/Plan Assessment/Plan Hospital Course (Demo Recall) assessment/impression - s/p sepsis due to intra-abdominal infection, resolving - postoperative fluid collection 40 x 37 x 31 mm in the gallbladder fossa, likely infected - s/p CT guided drainage of the above fluid. repeat CT showed residual fluid collection in the gallbladder fossa 3.4 x 2.7 x 1.5 cm which is significantly smaller than the prior study which demonstrated the fluid collection - h/o laparoscopic cholecystectomy on 03/25/2019 - hepatic steatosis - b/l adnexal complex cystic lesions on CT - adverse reaction to cipro (airway closure) and vancomycin (swelling and pruritus) recommendations - will follow up on bacterial, anaerobic, fungal and AFB cultures of the drained fluid - continue pip/tazo (03/30/2019-) and fluconazole (04/01/19-) - will adjust her antibiotics cased on the final culture result. Please note that Pt's allergic to ciprofloxacin (airway closure) management d/w Pt, her RN Santana Consultation Date/Type/Reason Admit Date/Time Mar 31, 2019 at 19:02 Initial Consult Date 04/01/19 Type of Consult ID Requesting Provider: UYSEF UGALDE Date/Time of Note DATE: 04/04/19 TIME: 21:07 24 HR Interval Summary Constitutional: no complaints Detailed Summary Eyes: no complaints ENT: no complaints Respiratory: no complaints Cardiovascular: no complaints Gastrointestinal: constipation, other (bloating, dullness of R side of the abdomen) Genitourinary: no complaints Musculoskeletal: no complaints Skin: no complaints Neurologic: no complaints Exam/Review of Systems Exam Vitals Vital Signs Date Temp Pulse Resp B/P (MAP) Pulse Ox O2 O2 Flow FiO2 Time Delivery Rate 04/04/19 98.3 65 18 95/54 (68) 97 Room Air 19:44 03/31/19 2.0 18:07 Intake and Output 04/03/19 04/03/19 04/04/19 1515:00 23:00 07:00 IntakeIntake Total 1200 ml 750 ml BalanceBalance 1200 ml 750 ml Constitutional: alert, oriented, well developed Psych: no complaints, nl mood/affect Head: normocephalic, atraumatic Eyes: nl conjunctiva, nl lids, nl sclera ENMT: nl external ears & nose, nl nasal mucosa & septum, mucosa pink and moist Neck: supple Respiratory: clear to auscultation, normal air movement Cardiovascular: regular rate and rhythm, nl pulses; No edema Gastrointestinal: soft, non-tender, bowel sounds, distended (slightly), surgical scars (well healed) Musculoskeletal: nl extremities to inspection Extremities: No edema Neurological: PROJECT MGR II-XII intact, nl mental status, nl speech, nl strength Skin: nl turgor; No rash or lesions Results Result Diagram: 04/04/19 0604/04/19 0638 Results 24hrs Laboratory Tests Test 04/04/19 06:38 White Blood Count 10.0 Red Blood Count 4.12 L Hemoglobin 10.9 L Hematocrit 34.2 L Mean Corpuscular Volume 83.0 Mean Corpuscular Hemoglobin 26.5 L Mean Corpuscular Hemoglobin Concent 31.9 L Red Cell Distribution Width 13.9 Platelet Count 329 Mean Platelet Volume 9.0 Immature Granulocytes % 0.600 H Neutrophils % 67.9 Lymphocytes % 20.9 Monocytes % 5.2 Eosinophils % 5.0 Basophils % 0.4 Nucleated Red Blood Cells % 0.0 Immature Granulocytes # 0.060 H Neutrophils # 6.8 Lymphocytes # 2.1 Monocytes # 0.5 Eosinophils # 0.5 Basophils # 0.0 Nucleated Red Blood Cells # 0.0 Sodium Level 140 Potassium Level 4.2 Chloride Level 106 Carbon Dioxide Level 27 Anion Gap 7 Blood Urea Nitrogen 9 Creatinine 0.77 Est Glomerular Filtrat Rate mL/min > 60 Glucose Level 104 Calcium Level 8.6 Medications Medication Current Medications Piperacillin Sod/ Tazobactam Sod 100 ml @ 200 mls/hr Q6 IVPB Last administered on 04/04/19at 18:35; Admin Dose 200 MLS/HR; Start 04/01/19 at 06:00 Acetaminophen (Tylenol Tab) 650 mg Q4H PRN PO MILD PAIN(1-3)OR ELEVATED TEMP Last administered on 04/04/19at 20:39; Admin Dose 650 MG; Start 04/01/19 at 00:30 Ondansetron HCl (Zofran Inj) 4 mg Q6H PRN IV NAUSEA AND/OR VOMITING Last administered on 04/02/19at 19:48; Admin Dose 4 MG; Start 04/01/19 at 00:30 Acetaminophen/ Hydrocodone Bitart ([place] (5/325)) 1 tab Q4H PRN PO MODERATE PAIN LEVEL 4-6; Start 04/01/19 at 00:30 Morphine Sulfate (morphine) 2 mg Q4H PRN IV SEVERE PAIN LEVEL 7-10; Start 04/01/19 at 00:30 Fluconazole 100 ml @ 100 mls/hr Q24H IVPB Last administered on 04/03/19at 23:13; Admin Dose 100 MLS/HR; Start 04/01/19 at 23:00 Senna (Senokot) 2 tab BID PO ; Start 04/03/19 at 21:00 MULU IRIZARRY M.D. Apr 04, 2019 21:17
[2019-04-04] MEDS: FLUCONAZOLE 200 MG (PMX) 100 ML IVPB SCH (23:45)
[2019-04-05] MEDS: FLUCONAZOLE 200 MG (PMX) 100 ML IVPB SCH (00:35)
[2019-04-05 02:00] VITALS: BP 102/56; PULSE 69; RESP 18
--- NOTE | 2019-04-05 03:20 | PN ---
DATE: 04/04/2019 SUBJECTIVE: Followup on intraabdominal fluid collection after cholecystectomy. The patient denies a ny chest pain or shortness of breath; upper abdominal pain has almost resolved. The patient underwen t IR-guided drainage and fluid was sent for diagnostic studies. The patient did not have any fever o r chills. No reported nausea or vomiting. PHYSICAL EXAMINATION: GENERAL: Reveals the patient to be awake and alert. VITAL SIGNS: Stable, afebrile, temperature 98.3, pulse 65, respirations 19, blood pressure 95/54, O2 sat 97% on room air. HEENT: No eye discharge or redness. Nose is normal externally. NECK: No mass. CHEST: Fairly clear. CARDIOVASCULAR: S1, S2, normal. ABDOMEN: Soft, nondistended, nontender. EXTREMITIES: No edema. NEUROLOGIC: The patient is awake, alert, fairly oriented with no gross focal deficit. LABORATORY DATA: Done today, WBC 10, hemoglobin 10.9, platelet 329. Chemistry unremarkable. IMPRESSION: Intraabdominal fluid collection after laparoscopic cholecystectomy, possible seroma. Th e patient is currently on IV Zosyn and Diflucan. THE PATIENT IS ALLERGIC TO CIPRO AND VANCOMYCIN. F luid culture and cytology results are pending, so far Gram stain and fluid culture is negative for an y growth. The patient is being followed by Dr. Mcclure from an infectious disease standpoint and Dr Linh Zhu from a surgery standpoint. We will further continue to follow during the patient's hospital co [facility]. Dictated By: MARSHAL PHILIP/LELE Conf#: [id number] DID#: [id number]
[2019-04-05] MEDS: PIPER-TAZO 3.375 GM IV (PMX) 100 ML IVPB SCH ×3 (05:08→17:20)
[2019-04-05 07:18] VITALS: BP 87/52; PULSE 71; RESP 16
[2019-04-05] MEDS: SENNA TAB PO SCH ×2 (08:07→20:55)
--- NOTE | 2019-04-05 12:21 | PN ---
Date/Time of Note Date/Time of Note DATE: 04/05/19 TIME: 12:20 Assessment/Plan VTE Prophylaxis Risk score (from Nsg)>0 risk: 2 SCD applied (from Nsg): Yes Pharmacological prophylaxis: other Lines/Catheters IV Catheter Type (from Nrsg): Saline Lock Assessment/Plan Assessment/Plan s/p lap kathrin with postop seroma that was drained dc when ok with primary team ok to followup with me in the office in 1-2 weeks Result Diagram: 04/04/19 0638 04/04/19 0638 Subjective 24 Hr Interval Summary Free Text/Dictation from surgical perspective patient is doing well a little nausea cultures no growth for two days drain fluid was osbaldo and suspect postop seroma Exam/Review of Systems Exam Vitals Vital Signs Date Temp Pulse Resp B/P (MAP) Pulse Ox O2 O2 Flow FiO2 Time Delivery Rate 04/05/19 98.1 71 16 87/52 (64) 96 Room Air 07:18 Intake and Output 04/04/19 04/04/19 04/05/19 1515:00 23:00 07:00 IntakeIntake Total 800 ml 340 ml 300 ml BalanceBalance 800 ml 340 ml 300 ml Exam c/d/i Medications Medication Current Medications Piperacillin Sod/ Tazobactam Sod 100 ml @ 200 mls/hr Q6 IVPB Last administered on 04/05/19at 11:28; Admin Dose 200 MLS/HR; Start 04/01/19 at 06:00 Acetaminophen (Tylenol Tab) 650 mg Q4H PRN PO MILD PAIN(1-3)OR ELEVATED TEMP Last administered on 04/04/19at 20:39; Admin Dose 650 MG; Start 04/01/19 at 00:30 Ondansetron HCl (Zofran Inj) 4 mg Q6H PRN IV NAUSEA AND/OR VOMITING Last administered on 04/02/19at 19:48; Admin Dose 4 MG; Start 04/01/19 at 00:30 Acetaminophen/ Hydrocodone Bitart ([place] (5/325)) 1 tab Q4H PRN PO MODERATE PAIN LEVEL 4-6; Start 04/01/19 at 00:30 Morphine Sulfate (morphine) 2 mg Q4H PRN IV SEVERE PAIN LEVEL 7-10; Start 04/01/19 at 00:30 Senna (Senokot) 2 tab BID PO Last administered on 04/05/19at 08:07; Admin Dose 2 TAB; Start 04/03/19 at 21:00 Fluconazole 100 ml @ 100 mls/hr Q24H IVPB Last administered on 04/05/19at 00:35; Admin Dose 100 MLS/HR; Start 04/04/19 at 23:45 Ange OWUSU Apr 05, 2019 12:21
[2019-04-05] MEDS: ACETAMINOPHEN 325 MG TAB PO PRN (13:00)
[2019-04-05] MEDS: ONDANSETRON 4 MG INJ IV PRN (13:44)
[2019-04-05 14:17] VITALS: BP 95/53; PULSE 80; RESP 16
--- NOTE | 2019-04-05 15:50 | PN ---
Date/Time of Note Date/Time of Note DATE: 04/05/19 TIME: 15:49 Assessment/Plan VTE Prophylaxis Risk score (from Nsg)>0 risk: 2 SCD applied (from Nsg): Yes SCD contraindicated: other Pharmacological prophylaxis: other Pharm contraindication: other Lines/Catheters IV Catheter Type (from Nrsg): Saline Lock Assessment/Plan Assessment/Plan - Intraabdominal fluid collection after laparoscopic cholecystectomy - per surgery - ID follows - IV Zosyn and Diflucan - pain control - ivf - possible seroma - Former smoker - reinforce smoking cessation - Hx Depression -- no acute issues; no meds reported for depression Patient seen in collaboration with Dr Johnson. dw staff Result Diagram: 04/04/1963704/04/19637 Subjective 24 Hr Interval Summary Free Text/Dictation - afebrile; ID follows -c/o low appetite but Tolerates diet - no events last night dw staff Eyes: no complaints ENT: no complaints Respiratory: no complaints Cardiovascular: no complaints Gastrointestinal: pain, decreased appetite Exam/Review of Systems Exam Vitals Vital Signs Date Temp Pulse Resp B/P (MAP) Pulse Ox O2 O2 Flow FiO2 Time Delivery Rate 04/05/19 98.6 80 16 95/53 (67) 95 Room Air 14:17 Intake and Output 04/04/19 04/04/19 04/05/19 1515:00 23:00 07:00 IntakeIntake Total 800 ml 340 ml 300 ml BalanceBalance 800 ml 340 ml 300 ml Constitutional: alert, well developed, obese Psych: nl mood/affect Head: normocephalic Eyes: nl lids, nl sclera, PERRL ENMT: nl external ears & nose Neck: non-tender Respiratory: clear to auscultation Cardiovascular: nl pulses, other (s1s2) Gastrointestinal: soft, tender, other (surgical abdoen ) Musculoskeletal: nl extremities to inspection Extremities: normal pulses Neurological: other (alert/ responsive ) Medications Medication Current Medications Piperacillin Sod/ Tazobactam Sod 100 ml @ 200 mls/hr Q6 IVPB Last administered on 04/05/19at 11:28; Admin Dose 200 MLS/HR; Start 04/01/19 at 06:00 Acetaminophen (Tylenol Tab) 650 mg Q4H PRN PO MILD PAIN(1-3)OR ELEVATED TEMP Last administered on 04/05/19 13:00; Admin Dose 650 MG; Start 04/01/19 at 00:30 Ondansetron HCl (Zofran Inj) 4 mg Q6H PRN IV NAUSEA AND/OR VOMITING Last administered on 04/05/19 13:44; Admin Dose 4 MG; Start 04/01/19 at 00:30 Acetaminophen/ Hydrocodone Bitart ([place] (5/325)) 1 tab Q4H PRN PO MODERATE PAIN LEVEL 4-6; Start 04/01/19 at 00:30 Morphine Sulfate (morphine) 2 mg Q4H PRN IV SEVERE PAIN LEVEL 7-10; Start 04/01/19 at 00:30 Senna (Senokot) 2 tab BID PO Last administered on 04/05/19 08:07; Admin Dose 2 TAB; Start 04/03/19 at 21:00 Fluconazole 100 ml @ 100 mls/hr Q24H IVPB Last administered on 04/05/19 00:35; Admin Dose 100 MLS/HR; Start 04/04/19 at 23:45 DEE LANDAVERDE Apr 05, 2019 15:49
--- NOTE | 2019-04-05 18:01 | CONS ---
Assessment/Plan Assessment/Plan Hospital Course (Demo Recall) assessment/impression - s/p sepsis due to intra-abdominal infection, resolving - postoperative fluid collection 40 x 37 x 31 mm in the gallbladder fossa, likely infected - s/p CT guided drainage of the above fluid. repeat CT showed residual fluid collection in the gallbladder fossa 3.4 x 2.7 x 1.5 cm which is significantly smaller than the prior study which demonstrated the fluid collection - h/o laparoscopic cholecystectomy on 03/25/2019 - hepatic steatosis - b/l adnexal complex cystic lesions on CT - adverse reaction to cipro (airway closure) and vancomycin (swelling and pruritus) recommendations - Pt continues to have dull pain in her mid abdomen, RUQ and R flank. Will order abd JATIN (to eval biliary tract) and KUB (to eval ileus) - continue pip/tazo (03/30/2019-); d/c fluconazole (04/01/19-) - will adjust her antibiotics based on the results of radiograph and cultures management d/w Pt, her RN Haydee, charge nurse, radiology techs the total time I took to care for this Pt today was from 1715 to 1800 Consultation Date/Type/Reason Admit Date/Time Mar 31, 2019 at 19:02 Initial Consult Date 04/01/19 Type of Consult ID Requesting Provider: YUSEF UGALDE Date/Time of Note DATE: 04/05/19 TIME: 17:55 24 HR Interval Summary Constitutional: improved Detailed Summary Eyes: no complaints ENT: no complaints Respiratory: no complaints Cardiovascular: no complaints Gastrointestinal: pain (mid abdomen that radiates to RUQ and R back); No diarrhea Genitourinary: no complaints Musculoskeletal: no complaints Skin: no complaints Exam/Review of Systems Exam Vitals Vital Signs Date Temp Pulse Resp B/P (MAP) Pulse Ox O2 O2 Flow FiO2 Time Delivery Rate 04/05/19 98.6 80 16 95/53 (67) 95 Room Air 14:17 Intake and Output 04/04/19 04/04/19 04/05/19 1515:00 23:00 07:00 IntakeIntake Total 800 ml 340 ml 300 ml BalanceBalance 800 ml 340 ml 300 ml Constitutional: alert, oriented, well developed Psych: no complaints, nl mood/affect Head: normocephalic, atraumatic Eyes: nl conjunctiva, nl lids, nl sclera ENMT: nl external ears & nose, nl nasal mucosa & septum, mucosa pink and moist Neck: non-tender Respiratory: clear to auscultation, normal air movement Cardiovascular: regular rate and rhythm, nl pulses; No edema Gastrointestinal: soft, surgical scars, tender (mid abdomen to RUQ and R flank); No distended Musculoskeletal: nl extremities to inspection Extremities: No edema Neurological: ADVERTISING SOLICITOR II-XII intact, nl mental status, nl speech Skin: nl turgor; No rash or lesions Results Result Diagram: 04/04/1963704/04/19637 Medications Medication Current Medications Piperacillin Sod/ Tazobactam Sod 100 ml @ 200 mls/hr Q6 IVPB Last administered on 04/05/19 17:20; Admin Dose 200 MLS/HR; Start 04/01/19 at 06:00 Acetaminophen (Tylenol Tab) 650 mg Q4H PRN PO MILD PAIN(1-3)OR ELEVATED TEMP Last administered on 04/05/19at 13:00; Admin Dose 650 MG; Start 04/01/19 at 00:30 Ondansetron HCl (Zofran Inj) 4 mg Q6H PRN IV NAUSEA AND/OR VOMITING Last administered on 04/05/19 13:44; Admin Dose 4 MG; Start 04/01/19 at 00:30 Acetaminophen/ Hydrocodone Bitart ([place] (5/325)) 1 tab Q4H PRN PO MODERATE PAIN LEVEL 4-6; Start 04/01/19 at 00:30 Morphine Sulfate (morphine) 2 mg Q4H PRN IV SEVERE PAIN LEVEL 7-10; Start 04/01/19 at 00:30 Senna (Senokot) 2 tab BID PO Last administered on 04/05/19 08:07; Admin Dose 2 TAB; Start 04/03/19 at 21:00 Fluconazole 100 ml @ 100 mls/hr Q24H IVPB Last administered on 04/05/19at 00:35; Admin Dose 100 MLS/HR; Start 04/04/19 at 23:45 MULU IRIZARRY M.D. Apr 05, 2019 18:01
[2019-04-05 20:00] VITALS: BP 100/58; PULSE 65; RESP 18
[2019-04-06] MEDS: PIPER-TAZO 3.375 GM IV (PMX) 100 ML IVPB SCH ×3 (00:44→11:58)
[2019-04-06] MEDS: FLUCONAZOLE 200 MG (PMX) 100 ML IVPB SCH (01:15)
[2019-04-06 01:56] VITALS: BP 102/62; PULSE 74; RESP 18
[2019-04-06 08:00] VITALS: BP 99/53; PULSE 63; RESP 17
[2019-04-06] MEDS: SENNA TAB PO SCH (08:19)
--- NOTE | 2019-04-06 13:17 | DS ---
Date/Time of Note Date/Time of Note DATE: 04/06/19 TIME: 13:16 Discharge Summary Admission/Discharge Info Admit Date/Time Mar 31, 2019 at 19:02 Discharge Date/Time 04/06/19 Discharge Diagnosis Intraabdominal fluid collection after laparoscopic cholecystectomy, possible seroma. Consults surgery infectious disease Procedures none Hx of Present Illness Patient is s/p laparoscopic cholecystecotmy and comes in bacause of abdominal pain. Patient was found to have intraabdominal fluid collection. Patient was admitted for further treatment. Hospital Course Patient is s/p laparoscopic cholecystecotmy and comes in bacause of abdominal pain. Patient was found to have intraabdominal fluid collection. Patient was admitted for further treatment. Patient was given intravenous antibiotics and monitored. Patient slowly improved and at the time of discharge, her pain has resolved. Patient will be discharged and to follow up with surgery Home Meds No Active Prescriptions or Reported Meds Primary Care Provider Not On Staff Doctor LANCE RAZA Apr 06, 2019 13:17
[2019-04-06 14:00] VITALS: BP 96/59; PULSE 86; RESP 18
--- NOTE | 2019-04-06 16:14 | PN ---
DATE: 04/06/2019 SUBJECTIVE: The patient is a 46-year-old female status post recent laparoscopic cholecystectomy, was admitted through the emergency room a few days after having been discharged because of continued rig ht upper quadrant pain and the patient was evaluated by ultrasound and CT scan. There was some fluid at the gallbladder fossa. The aspirate is under the guidance of ultrasound and CT scan, but sent a specimen which did not look purulent. Anyway, they sent for culture. The culture did not grow any b acteria. Nevertheless, the patient was put on antibiotics per medical service decision and on admiss ion to the emergency room WBC was 12,600 with 81% segmented. The patient was started on Zosyn and le ukocyte count has been normal since 04/02/2019. Today the patient does not have any specific complai nt. Minimal amount of abnormal sensation in the right upper quadrant area, had completely ate her santana nch, has had bowel movement yesterday. Today only passed gas, no vomiting. The patient only some de gree of nausea after eating food. No fever, no chills. OBJECTIVE: VITAL SIGNS: Today temperature maximum 98.4, heart rate 63, respirations 17, blood pressure 99/53, s aturation 95%, room air. HEART: Regular. LUNGS: Clear. ABDOMEN: Incision lines are clean, no cellulitis. Bowel sounds normal. There is mild tenderness on deep pressure below the right upper quadrant area. EXTREMITIES: Legs negative. ASSESSMENT AND PLAN: A 38-year-old female, status post laparoscopic cholecystectomy, which was done on 03/25/2019. The patient was readmitted after being discharged because of abdominal pain in the [facility] upper quadrant area. Patient has mild leukocytosis and shift to the left, some fluid accumulatio n in the gallbladder fossa. Aspiration by radiology was done. No culture growth was obtained. Toda y the patient is quite stable and has been out of bed and walking around, passing gas, eating food. Therefore, the patient can be discharged home if it is okay with medical service, to be followed by Darryl Zhu in his office next week. Dictated By: TYLER WELCH MD PS/NTS Conf#: [id number] DID#: [id number] CC: MARSHAL TAYLOR MD; LAVELLE ZHU MD;*End*
== END 2019-04-06 17:49 | disposition home or self-care (01) | DRG 919 ==
LOC: E/R 16:21 → PP2 19:02
PROVIDERS: ADMIT Internal Medicine; ATTEND Internal Medicine
PROC: 0W9G3ZZ Drainage of Peritoneal Cavity, Percutaneous Approach (ICD-10-PCS; principal; 2019-04-03)
DX: K91.872 Postprocedural seroma of a digestive system organ or structure following a digestive system procedure (principal); A41.9 Sepsis, unspecified organism; Z90.49 Acquired absence of other specified parts of digestive tract; K76.0 Fatty (change of) liver, not elsewhere classified; Z87.891 Personal history of nicotine dependence
CPT/HCPCS: 36415; 71045; 74018; 74177; 76705; 77012; 80048; 80053; 81001; 83605; 84484; 84703; 85025; 85610; 85730; 87070; 87075; 87086; 87102; 87116; 93005; 96365; 96375; C1729; J1200; J2250; J2270; J2405; J2543; J3010; J3370; J7030; J7040; J7042; Q9967